=== PATIENT | male | born 1940 | race Caucasian/White ===

== ENCOUNTER 2023-01-23 13:49 | Emergency (ER) | payer MEDICARE, BC, SELFPAY ==
[2023-01-23] VITALS (14 sets, daily range): BP systolic 109–124; BP diastolic 54–59; PULSE 56–88; RESP 18–36; TEMP 36.6; O2SAT 95–100; BMI 21.8
[2023-01-23 14:28] LABS: Add Manual Diff / Slide Review NO; Basophils Absolute Auto 0 /uL (0-100); Basophils Percent Auto 0.7 % (0-2); Eosinophils Absolute Auto 0 /uL (0-450); Eosinophils Percent Auto 0.3 % (2-4); Hematocrit 27.1 % (41-53); Lymphocytes Absolute Auto 600 /uL (1100-4500); Lymphocytes Percent Auto 9.2 % (25-40); Mean Corpuscular HGB Conc 33.4 % (30-36); Mean Corpuscular Hemoglobin 30.3 PG (26-34); Mean Corpuscular Volume 90.8 fL (80-100); Monocytes Absolute Auto 400 /uL (0-900); Monocytes Percent Auto 5.6 % (3-14); Neutrophils Absolute Auto 5900 /uL (1500-7000); Neutrophils Percent Auto 84.2 % (50-75); Platelet Count 372 X10^3/uL (150-400); Red Blood Cell Count 2.98 X10^6/uL (4.5-5.9); Red Cell Distribution Width 18.6 % (11.6-14.8)
[2023-01-23 14:42] LABS: Alanine Aminotransferase 16 IU/L (<50); Albumin 3.9 g/dL (3.5-5.0); Alkaline Phosphatase 55 U/L (38-126); Aspartate Aminotransferase 30 IU/L (17-59); BUN Creatinine Ratio 54.3 (6-22); Bilirubin Total 0.5 mg/dL (0.2-1.3); Blood Urea Nitrogen 38 mg/dL (9-20); Calcium 9.5 mg/dL (8.4-10.2); Carbon Dioxide 33 mmol/L (22-32); Chloride 96 mmol/L (98-107); Estimated Glomerular Filt Rate > 60 mL/min (>60); Globulin 3.8 g/dL (1.7-4.1); Glucose 131 mg/dL (80-110); HEMOLYSIS < 15 (0-50); Lipase 122 U/L (23-300); Sodium 136 mmol/L (137-145); Total Protein 7.7 g/dL (6.3-8.2)
--- NOTE | 2023-01-23 19:36 | DI.CT.S_ITS ---
PROCEDURE: CT ABDOMEN PELVIS WO CON INDICATIONS: abd pain, fall, injury. TECHNIQUE: Noncontrast 5 mm thick sections acquired from the diaphragms to the symphysis. 5 mm coronal and sagittal reformats were then performed. For radiation dose reduction, the following was used: automated exposure control, adjustment of mA and/or kV according to patient size. COMPARISON: [facility], CT, CT HEAD/BRAIN WO CON, 01/23/2023, 19:58. FINDINGS: Image quality: Diminished by the absence of both oral and intravenous contrast. ABDOMEN: Lung bases: Lung bases are clear except for posterior atelectasis that is mild in severity, secondary to bilateral simple appearing pleural effusions, left slightly greater than right. Heart size is normal. Solid organs: Liver is normal in size. Gallbladder has been previously resected . Pancreas is normal in contours. Spleen is normal in size. No adrenal nodules. Kidneys are normal in size, without hydronephrosis or nephrolithiasis. Peritoneum and bowel: Unenhanced bowel loops demonstrate normal wall thickness and caliber. No free fluid or air. Moderate colonic obstipation. Nodes and vessels: No retroperitoneal or mesenteric adenopathy by size criteria. Aorta and inferior vena cava are normal in caliber. Miscellaneous: No ventral hernias. PELVIS: Genitourinary: Bladder wall thickness is normal. Miscellaneous: No inguinal hernias or adenopathy. Moderate colonic obstipation. Bones: No suspicious bony lesions. No vertebral body compression fractures. IMPRESSION: No trauma found. Moderate generalized colonic obstipation. Prior cholecystectomy. Bilateral left greater than right small pleural effusions. Secondary bibasilar atelectasis. Dictated by: Sagar Tee M.D. on 01/23/2023 at 20:29 Approved by: Sagar Tee M.D. on 01/23/2023 at 20:31
--- NOTE | 2023-01-23 19:42 | ED_ITS ---
HPI - Abdominal Pain General Chief Complaint: Abdominal Pain Stated Complaint: sent no bowel movement T-4 Time Seen by Provider: 01/23/23 19:13 Source: patient Mode of arrival: Ambulatory History of Present Illness HPI narrative: Patient brought here by family after evaluation by primary care provider for abdominal pain and no bowel movement for the past 4 days. Patient has history of colon resection cholecystectomy appendectomy. History of bowel obstructions in the past. Surgical history of these many years ago. Nausea but no vomiting. No urinary complaints. No black or bloody stools. No chest pain no back pain. Patient is in no distress. Related Data Previous Rx's Medication Instructions Recorded docusate sodium 100 mg capsule 100 mg PO BID #20 caps 01/24/23 (Colace) polyethylene glycol 3350 17 17 g PO DAILY #119 grams 01/24/23 gram/dose oral powder (Miralax) Allergies Allergy/AdvReac Type Severity Reaction Status Date / Time shrimp AdvReac Difficulty Verified 01/23/23 14:10 Breathing Review of Systems Review of Systems Narrative: GENERAL: negative chills, fatigue, malaise, fever, sweats. HEENT: negative sinus pain, ear pain, sore throat RESPIRATORY: negative dyspnea, cough CARDIOVASCULAR: negative chest pain, palpitations GASTROINTESTINAL: Positive nausea, negative vomiting, positive abdominal pain : negative dysuria, frequency, hematuria MUSCULOSKELETAL: negative muscle or bony pain SKIN: negative rash, skin lesions NEUROLOGIC: negative weakness, numbness ROS Unobtainable: All systems reviewed & are unremarkable except as noted in HPI and below Patient History Social History Smoking Status: Never smoker Smoking Status: Never smoker alcohol intake frequency: 0-2 drinks per day Substance Use Type: does not use Exam Narrative Exam Narrative: GENERAL: in no distress, not toxic not dyspneic HEAD: Normocephalic. Atraumatic, nontender scalp and skull. No ecchymosis or contusion or edema EYES: Pupils equal round ENT: Mucous membranes moist. NECK: Trachea midline. No midline tenderness or step-off of the cervical spine CARDIOVASCULAR: Regular rate and rhythm without murmurs RESPIRATORY: Clear to auscultation. Breath sounds equal bilaterally. No wheezes, rales, or rhonchi. GASTROINTESTINAL: Abdomen soft, abdomen is distended, tympanic on percussion. Bowel sounds are present. No pain out of portion to exam. Mild diffuse tenderness. EXTREMITIES: No gross deformities. BACK: No flank tenderness. NEURO: AOx4. SKIN: Warm and dry PSYCH: Not anxious, is cooperative Initial Vital Signs Initial Vital Signs: Vital Signs Temperature 97.8 F 01/23/23 14:01 Pulse Rate 69 01/23/23 14:01 Respiratory Rate 18 01/23/23 14:01 Blood Pressure 109/59 L 01/23/23 14:01 Pulse Oximetry 100 01/23/23 14:01 Oxygen Delivery Method Room Air 01/23/23 14:01 Course Orders Ordered: ED Orders 01/23/23 19:36 CT abdomen pelvis wo con Stat 01/23/23 19:43 CT head/brain wo con Stat Discontinued Medications Sodium Chloride (Normal Saline 0.9%) 1,000 mls @ 1,000 mls/hr IV BOLUS ONE Stop: 01/23/23 20:34 Last Infusion: 01/23/23 21:03 Dose: 0 mls/hr Documented By: Admin: 01/23/23 19:51 Dose: 1,000 mls/hr Documented By: MONTEZ Magnesium Citrate (Magnesium Citrate 300 Ml Solution) 300 ml PO NOW ONE Stop: 01/23/23 20:51 Last Admin: 01/23/23 21:03 Dose: 300 ml Documented By: MERLINE Morphine Sulfate (Morphine 2 Mg/Ml Inj) 2 mg IV NOW ONE Stop: 01/23/23 19:36 Last Admin: 01/23/23 19:52 Dose: 2 mg Documented By: MONTEZ Ondansetron HCl (Ondansetron 4 Mg/2 Ml Inj) 4 mg IV NOW PRN PRN Reason: Nausea And Vomiting Vital Signs Vital signs: Vital Signs - 8 hr 01/23/23 20:30 01/23/23 20:32 01/23/23 20:32 Pulse Rate 88 79 Respiratory Rate Blood Pressure 115/57 L Pulse Oximetry 95 01/23/23 21:00 01/23/23 21:00 01/24/23 00:23 Pulse Rate 72 84 Respiratory Rate 20 16 Blood Pressure 122/57 L 96/53 L Pulse Oximetry 100 98 01/24/23 00:42 Pulse Rate Respiratory Rate Blood Pressure 100/54 L Pulse Oximetry MDM - Abdominal Pain Lab Data 01/23/23 14:15 01/23/23 14:15 Labs: Lab Results 01/23/23 01/23/23 Range/Units 14:15 14:15 WBC 7.0 (4.5-11.0) X10^3/uL RBC 2.98 L (4.5-5.9) X10^6/uL Hgb 9.0 L (13.5-17.5) g/dL Hct 27.1 L (41-53) % MCV 90.8 (80-100) fL MCH 30.3 (26-34) PG MCHC 33.4 (30-36) % RDW 18.6 H (11.6-14.8) % Plt Count 372 (150-400) X10^3/uL Neut % (Auto) 84.2 H (50-75) % Lymph % (Auto) 9.2 L (25-40) % Lawrence % (Auto) 5.6 (3-14) % Eos % (Auto) 0.3 L (2-4) % Baso % (Auto) 0.7 (0-2) % Neut # (Auto) 5900 (6570-1484) /uL Lymph # (Auto) 600 L (4592-0100) /uL Lawrence # (Auto) 400 (0-900) /uL Eos # (Auto) 0 (0-450) /uL Baso # (Auto) 0 (0-100) /uL Sodium 136 L (137-145) mmol/L Potassium 4.0 (3.4-5.1) mmol/L Chloride 96 L (98-107) mmol/L Carbon Dioxide 33 H (22-32) mmol/L BUN 38 H (9-20) mg/dL Creatinine 0.70 (0.66-1.25) mg/dL Estimated GFR > 60 (>60) mL/min BUN/Creatinine Ratio 54.3 H (6-22) Glucose 131 H (80-110) mg/dL Calcium 9.5 (8.4-10.2) mg/dL Total Bilirubin 0.5 (0.2-1.3) mg/dL AST 30 (17-59) IU/L ALT 16 (<50) IU/L Alkaline Phosphatase 55 (38-126) U/L Total Protein 7.7 (6.3-8.2) g/dL Albumin 3.9 (3.5-5.0) g/dL Globulin 3.8 (1.7-4.1) g/dL Albumin/Globulin Ratio 1.0 (1.0-2.8) Lipase 122 (23-300) U/L Point of care testing: Urine Dip Bedside Urine Glucose Negative Bedside Urine Bilirubin - Negative Bedside Urine Ketone - Negative Urine Specific [place] 1.01 Bedside Urine Occult Blood - Negative Bedside Urine pH 6 Bedside Urine Protein - Negative Bedside Urine Urobilinogen - Negative Bedside Urine Nitrite - Negative Bedside Urine Leukocytes - Negative Esterase Imaging Data CT scan - head: Radiologist's Impression: [address] [address] [address] Scan Report Signed Patient: Juan Pablo Rebollar MR#: [id number] : 1940 Acct:[id number] Age/Sex: 82 / M Date of Service: 01/23/23 Loc: ED Accession Number: [id number] ?? Procedure: CT head/brain wo con Ordering Provider: Buck Mullen MD PROCEDURE:? CT HEAD/BRAIN WO CON ? INDICATIONS:? Fall/injury ? TECHNIQUE:? Noncontrast 4.5 mm thick angled axial sections acquired from the foramen magnum to the vertex, with coronal and sagittal reformats.? For radiation dose reduction, the following was used:? automated exposure control, adjustment of mA and/or kV according to patient size.? ? COMPARISON:? None. ? FINDINGS:? Image quality:? Excellent.? ? CSF spaces:? Basal cisterns are patent.? No extra-axial fluid collections.? The ventricles are symmetric in size and shape.? ? Brain:? No intracranial bleeds or masses.? There is cerebral volume loss for a ge, with resultant ventricular and sulcal prominence.? There are periventricular and deep white matter chronic small vessel ischemic changes.? There is intracranial internal carotid artery atherosclerosis.? ? Skull and face:? Calvarium and visualized facial bones appear intact, without suspicious lesions.? ? Sinuses:? Visualized sinuses and mastoids are clear.? ? IMPRESSION:? No trauma found.? Chronic microvascular atherosclerotic change in the deep white matter of each hemisphere, expected for advanced age. ? ? Dictated by: Sagar Tee M.D. on 01/23/2023 at 20:25 ? ? Approved by: Sagar Tee M.D. on 01/23/2023 at 20:26 ? CT scan - abdomen/pelvis: Radiologist's Impression: [address] [address] [address] Scan Report Signed Patient: Juan Pablo Rebollar MR#: [id number] : 1940 Acct:[id number] Age/Sex: 82 / M Date of Service: 01/23/23 Loc: ED Accession Number: [id number] ?? Procedure: CT abdomen pelvis wo con Ordering Provider: Buck Mullen MD PROCEDURE:? CT ABDOMEN PELVIS WO CON ? INDICATIONS:? abd pain, fall, injury. ? TECHNIQUE:? Noncontrast 5 mm thick sections acquired from the diaphragms to the symphysis.? 5 mm coronal and sagittal reformats were then performed.? For radiation dose reduction, the following was used:? automated exposure control, adjustment of mA and/or kV according to patient size.? ? COMPARISON:? [facility], CT, CT HEAD/BRAIN WO CON, 01/23/2023, 19:58. ? FINDINGS:? Image quality:? Diminished by the absence of both oral and intravenous contrast.? ? ABDOMEN:? Lung bases:? Lung bases are clear except for posterior atelectasis that is mild in severity, secondary to bilateral simple appearing pleural effusions, left slightly greater than right.? Heart size is normal.? ? Solid organs:? Liver is normal in size.? Gallbladder has been previously rese cted .? Pancreas is normal in contours.? Spleen is normal in size.? No adrenal nodules.? Kidneys are normal in size, without hydronephrosis or nephrolithiasis.? ? Peritoneum and bowel:? Unenhanced bowel loops demonstrate normal wall thickness and caliber.? No free fluid or air.? Moderate colonic obstipation. ? Nodes and vessels:? No retroperitoneal or mesenteric adenopathy by size criteria.? Aorta and inferior vena cava are normal in caliber.? ? Miscellaneous:? No ventral hernias.? ? ? PELVIS:? Genitourinary:? Bladder wall thickness is normal.? ? Miscellaneous:? No inguinal hernias or adenopathy.? Moderate colonic obstipation. ? Bones:? No suspicious bony lesions.? No vertebral body compression fractures.? ? IMPRESSION:? No trauma found.? Moderate generalized colonic obstipation.? Prior cholecystectomy.? Bilateral left greater than right small pleural effusions.? Secondary bibasilar atelectasis. ? ? Dictated by: Sagar Tee M.D. on 01/23/2023 at 20:29 ? ? Approved by: Sagar Tee M.D. on 01/23/2023 at 20:31 ? [facility] Narrative Medical decision making narrative: Patient brought here by family after evaluation by primary care provider for abdominal pain and no bowel movement for the past 4 days. Patient has history of colon resection cholecystectomy appendectomy. History of bowel obstructions in the past. Surgical history of these many years ago. Nausea but no vomiting. No urinary complaints. No black or bloody stools. No chest pain no back pain. Patient is in no distress. After history and exam CBC CMP lipase urinalysis EKG CT abdomen pelvis morphine Zofran normal saline [facility] CC: Abdominal pain Complicating co-morbidities: Significant past abdominal surgical history, history AFib Data collected from: Patient Medical records reviewed: No recent visits for this complaint Differential considered: Includes but not limited to bowel obstruction constipation perforated viscus UTI kidney stone, ischemic bowel Exam documented above, pertinent findings include: Distended abdomen/tenderness Lab Test results independently reviewed as above. Pertinent findings: WBC 7.0 hemoglobin 9.0 hematocrit 27.1 sodium 136 potassium 4.0 BUN 38 creatinine 0.7 GFR greater than 60 Independently reviewed EKG atrial fibrillation rate 68 right bundle-branch block no ST elevation or depression Imaging studies independently reviewed: CT head no acute finding CT abdomen pelvis moderate colonic obstipation Consultations: None indicated Treatments: Soapsuds enema/magnesium citrate Re-evaluations: 12:22 a.m.. Patient feels much better. Had very large formed stool. Abdomen feels much better. Son at bedside ready to take him home. Return precautions reviewed with him. Prescription for MiraLax and Colace provided. They desire discharge home Discussion: Appropriate for discharge home. Patient had significant improvement after very large bowel movement. Return precautions reviewed. They desire discharge home. Stool softener and MiraLax provided prescription. Not toxic at discharge Diagnosis: Constipation Discharge Plan Departure Patient Disposition: Home Clinical Impression: Constipation Instructions: DI for Constipation Activity Restrictions/Additional Instructions: Exam and CT imaging today as shown significant constipation. You were able to have significant relief with enema here. Please increase daily fiber fruits vegetables. Stool softener, Colace prescription has been provided for you. Be sure to continue this medication, pick it up tomorrow. See family doctor in a week for re-evaluation. Please do keep well hydrated daily. This helps prevent constipation. Return if worse if any questions or concerns Prescriptions: New docusate sodium [Colace] 100 mg capsule 100 mg PO BID Qty: 20 0RF polyethylene glycol 3350 [Miralax] 17 gram/dose powder 17 g PO DAILY Qty: 119 0RF Referrals: Linda Russo MD [Primary Care Provider] - Stand Alone Forms: Patient Portal/API
--- NOTE | 2023-01-23 19:43 | DI.CT.S_ITS ---
PROCEDURE: CT HEAD/BRAIN WO CON INDICATIONS: Fall/injury TECHNIQUE: Noncontrast 4.5 mm thick angled axial sections acquired from the foramen magnum to the vertex, with coronal and sagittal reformats. For radiation dose reduction, the following was used: automated exposure control, adjustment of mA and/or kV according to patient size. COMPARISON: None. FINDINGS: Image quality: Excellent. CSF spaces: Basal cisterns are patent. No extra-axial fluid collections. The ventricles are symmetric in size and shape. Brain: No intracranial bleeds or masses. There is cerebral volume loss for age, with resultant ventricular and sulcal prominence. There are periventricular and deep white matter chronic small vessel ischemic changes. There is intracranial internal carotid artery atherosclerosis. Skull and face: Calvarium and visualized facial bones appear intact, without suspicious lesions. Sinuses: Visualized sinuses and mastoids are clear. IMPRESSION: No trauma found. Chronic microvascular atherosclerotic change in the deep white matter of each hemisphere, expected for advanced age. Dictated by: Sagar Tee M.D. on 01/23/2023 at 20:25 Approved by: Sagar Tee M.D. on 01/23/2023 at 20:26
[2023-01-23] MEDS: SODIUM CHLORIDE 0.9% 1,000 ML 1000 ML IV (19:51)
[2023-01-23] MEDS: MORPHINE 2 MG/ML INJ IV (19:52)
[2023-01-23] MEDS: MAGNESIUM CITRATE 300 ML SOLUTION PO (21:03)
--- NOTE | 2023-01-24 00:08 | PC.NURSE ---
Pt given soap suds enema w/o problems.
[2023-01-24 00:23] VITALS: BP 96/53; PULSE 84; RESP 16; O2SAT 98
--- NOTE | 2023-01-24 00:26 | PC.NURSE ---
Pt had large formed stool.
[2023-01-24 00:42] VITALS: BP 100/54
== END 2023-01-24 00:45 | disposition home or self-care (01) ==
PROVIDERS: Emergency Medicine; Emergency Provider Emergency Medicine; Family Provider Internal Medicine; PCP Internal Medicine
DX: K59.00 Constipation, unspecified (principal); R10.9 Unspecified abdominal pain; W19.XXXA Unspecified fall, initial encounter; T14.90XA Injury, unspecified, initial encounter
CPT/HCPCS: 36415; 70450; 74176; 80053; 81003; 83690; 85025; 93005; 96361; 96374; 99284; 99285; J2270

== ENCOUNTER 2023-02-07 02:28 | Inpatient (IN) | payer MEDICARE, BC, SELFPAY ==
[2023-02-07] VITALS (9 sets, daily range): BP systolic 101–131; BP diastolic 49–58; PULSE 61–84; RESP 16–22; TEMP 36.2–37.2; O2SAT 95–100; BMI 22.4
--- NOTE | 2023-02-07 02:56 | DI.RAD.S_ITS ---
PROCEDURE: XR ACUTE ABDOMEN SERIES INDICATIONS: pain cramping hx obstruction TECHNIQUE: One view chest and two views of the abdomen were acquired. COMPARISON: [facility], CT, CT ABDOMEN PELVIS W CON, 02/07/2023, 4:55. FINDINGS: Surgical changes and devices: None. Chest: Small pleural effusions bilaterally. Bilateral lower lobe opacities may be infiltrate or atelectasis. Heart size is normal. No pneumoperitoneum. Abdomen: There are multiple air-fluid levels in mid abdomen. There is paucity of distal colonic gas. No suspicious calcifications. Visualized solid organ contours appear normal. Bones: No suspicious bony lesions. IMPRESSION: 1. Small-bowel obstruction. 2. Small pleural effusions bilaterally. 3. Bibasilar pneumonia or atelectasis. No significant discrepancy with the shiftman radiology preliminary report. Dictated by: Eulogio Parrish M.D. on 02/07/2023 at 8:37 Approved by: Eulogio Parrish M.D. on 02/07/2023 at 8:40
--- NOTE | 2023-02-07 04:33 | DI.CT.S_ITS ---
PROCEDURE: CT ABDOMEN PELVIS W CON INDICATIONS: SBO TECHNIQUE: After the administration of oral and IV contrast, axial sections were acquired from the lung bases to the pubic symphysis. Coronal and sagittal reformats were performed. For radiation dose reduction, the following was used: automated exposure control, adjustment of mA and/or kV according to patient size. COMPARISON: [facility], CT, CT ABDOMEN PELVIS WO [facility], 01/23/2023, 19:58. FINDINGS: Image quality: Excellent. Lung bases: [id number] pleural effusions bilaterally, left greater than right. Heart: Mild cardiomegaly. Moderate to severe coronary artery atherosclerosis. ABDOMEN: Liver: Unremarkable. Gallbladder: Surgically absent. Biliary ducts: Slightly prominent, likely secondary to postsurgical change. Pancreas: There is a 1.2 cm cyst in the area of the pancreatic head. Spleen: Unremarkable. Adrenal Glands: Unremarkable. Kidneys and Ureters: Unremarkable. Stomach and Bowel: Stomach is unremarkable. There is a large amount of stool in rectum. There is a focal narrowing in the distal sigmoid colon (series 2, image 66). Proximally, there is dilation of colon and distal small bowel measuring up to 7.7 cm, suggesting distal colonic obstruction. Postsurgical changes in right colon. Peritoneum: No abnormal intraperitoneal fluid. No free air. Ventral Wall: No hernia. Abdominal Nodes: No retroperitoneal or mesenteric adenopathy by size criteria. Vessels: Aorta and inferior vena cava are normal in size. Moderate atherosclerosis. PELVIS: Pelvic Organs: Unremarkable. Bladder: Unremarkable. Pelvic Nodes: No enlarged lymph nodes. Miscellaneous: No inguinal hernias are seen. Bones: Unremarkable. IMPRESSION: 1. There is distal colonic obstruction either from a focal narrowing or fecal impaction. A short segment focal narrowing is noted at the rectosigmoid junction, which could be caused by a mass or peristalsis. Recommend follow-up endoscopy. 2. [id number] bilateral pleural effusions. 3. A 1.2 cm cyst in the area of the pancreatic head. Differential diagnoses are a simple cyst versus IPMN. Consider pancreatic protocol MRI or CT for further evaluation. No significant discrepancy with the hourly shift manager radiology preliminary report. Dictated by: Eulogio Parrish M.D. on 02/07/2023 at 7:52 Approved by: Eulogio Parrish M.D. on 02/07/2023 at 8:04
--- NOTE | 2023-02-07 04:34 | ED.ABDPAIN ---
HPI - Abdominal Pain General Chief Complaint: Abdominal Pain Stated Complaint: constipated Time Seen by Provider: 02/07/23 04:33 Source: patient and family Mode of arrival: Wheelchair History of Present Illness HPI narrative: Patient is an 82-year-old male with history atrial fibrillation on xeralto, diabetes, multiple abdominal surgeries including colon resection cholecystectomy appendectomy with recent small-bowel obstructions in the past. Presents today with no bowel movement after taking GoLYTELY. He is actually prepping for colonoscopy supposed to have a [facility] he is had almost all of the GoLYTELY and he has not had any poop. He denies any nausea vomiting or abdominal pain. No chest pain. He was seen evaluated here January 23 for some abdominal discomfort. He had a CT and blood work at time no bowel movement for the last 4 days concern for obstruction but there was not. He was found to have constipation and actually discharged home with GoLYTELY from the ED. Related Data Previous Rx's Medication Instructions Recorded docusate sodium 100 mg capsule 100 mg PO BID #20 caps 01/24/23 (Colace) polyethylene glycol 3350 17 17 g PO DAILY #119 grams 01/24/23 gram/dose oral powder (Miralax) Allergies Allergy/AdvReac Type Severity Reaction Status Date / Time shrimp AdvReac Difficulty Verified 01/23/23 14:10 Breathing Review of Systems Review of Systems ROS Unobtainable: All systems reviewed & are unremarkable except as noted in HPI and below Patient History Social History Smoking Status: Former smoker Smoking Status: Former smoker alcohol intake frequency: 0-2 drinks per day Substance Use Type: does not use Exam Initial Vital Signs Initial Vital Signs: Vital Signs Temperature 98.1 F 02/07/23 02:32 Pulse Rate 75 02/07/23 02:32 Respiratory Rate 17 02/07/23 02:32 Blood Pressure 113/53 L 02/07/23 02:32 Pulse Oximetry 100 02/07/23 02:32 Oxygen Delivery Method Room Air 02/07/23 02:32 GENERAL: Alert pleasant thin 82-year-old male and in no acute distress. HEENT: Head atraumatic,EOMI, pupils reactive, face symmetric, moist mucous membranes CARDIOVASCULAR: Regular rate and rhythm without murmurs, rubs or gallops. RESPIRATORY: Breath sounds equal bilaterally, no wheezes rales or rhonchi. ABDOMEN: Soft, distention no pain ventral hernia noted EXTREMITIES: Normal range of motion, no clubbing or edema. Neurovascularly intact NEUROLOGICAL: Alert and oriented x4.Normal gait and speech. SKIN: Warm, dry, no laceration, no petechiae, no rashes or lesions. Course Orders Ordered: ED Orders 02/07/23 02:56 XR acute abdomen series Stat 02/07/23 04:33 CT abdomen pelvis w con Stat 02/07/23 04:42 Complete Blood Count AUTO DIFF Stat Comprehensive Metabolic Panel Stat Lipase Stat Dextrose/Sodium Chloride (Dextrose 5%-0.45% Ns) 1,000 mls @ 100 mls/hr IV CONT ANI Last Admin: 02/07/23 05:53 Dose: 100 mls/hr Documented By: RONAN Discontinued Medications Sodium Chloride (Normal Saline 0.9%) 1,000 mls @ 1,000 mls/hr IV BOLUS ONE Stop: 02/07/23 05:32 Last Infusion: 02/07/23 05:53 Dose: 0 mls/hr Documented By: Admin: 02/07/23 05:04 Dose: 1,000 mls/hr Documented By: RONAN Ondansetron HCl (Ondansetron 4 Mg/2 Ml Inj) 4 mg IV NOW ONE Stop: 02/07/23 04:34 Last Admin: 02/07/23 05:03 Dose: 4 mg Documented By: RONAN Vital Signs Vital signs: Vital Signs - 8 hr 02/07/23 02:32 02/07/23 05:07 02/07/23 05:30 Temperature 98.1 F Pulse Rate 75 72 83 Respiratory Rate 17 16 21 Blood Pressure 113/53 L Pulse Oximetry 100 97 Oxygen Delivery Method Room Air Room Air 02/07/23 05:32 02/07/23 05:32 02/07/23 06:00 Temperature Pulse Rate 79 Respiratory Rate 22 Blood Pressure 115/53 L 120/58 L Pulse Oximetry 99 Oxygen Delivery Method Room Air 02/07/23 06:00 Temperature Pulse Rate 84 Respiratory Rate 21 Blood Pressure Pulse Oximetry 99 Oxygen Delivery Method Room Air MDM - Abdominal Pain Lab Data 02/07/23 04:42 02/07/23 04:42 Labs: Lab Results 02/07/23 02/07/23 Range/Units 04:42 04:42 WBC 4.8 (4.5-11.0) X10^3/uL RBC 2.91 L (4.5-5.9) X10^6/uL Hgb 8.9 L (13.5-17.5) g/dL Hct 26.2 L (41-53) % MCV 90.0 (80-100) fL MCH 30.4 (26-34) PG MCHC 33.7 (30-36) % RDW 18.4 H (11.6-14.8) % Plt Count 305 (150-400) X10^3/uL Neut % (Auto) 83.0 H (50-75) % Lymph % (Auto) 8.7 L (25-40) % Daniels % (Auto) 7.6 (3-14) % Eos % (Auto) 0.3 L (2-4) % Baso % (Auto) 0.4 (0-2) % Neut # (Auto) 4000 (9632-1795) /uL Lymph # (Auto) 400 L (6441-2264) /uL Daniels # (Auto) 400 (0-900) /uL Eos # (Auto) 0 (0-450) /uL Baso # (Auto) 0 (0-100) /uL Sodium 129 L (137-145) mmol/L Potassium 3.3 L (3.4-5.1) mmol/L Chloride 86 L (98-107) mmol/L Carbon Dioxide 36 H (22-32) mmol/L BUN 23 H (9-20) mg/dL Creatinine 0.82 (0.66-1.25) mg/dL Estimated GFR > 60 (>60) mL/min BUN/Creatinine Ratio 28.0 H (6-22) Glucose 77 L (80-110) mg/dL Calcium 8.9 (8.4-10.2) mg/dL Total Bilirubin 1.0 (0.2-1.3) mg/dL AST 35 (17-59) IU/L ALT 15 (<50) IU/L Alkaline Phosphatase 56 (38-126) U/L Total Protein 7.8 (6.3-8.2) g/dL Albumin 3.8 (3.5-5.0) g/dL Globulin 4.0 (1.7-4.1) g/dL Albumin/Globulin Ratio 1.0 (1.0-2.8) Lipase 45 (23-300) U/L Point of care testing: Point of Care Testing Glucose POC 70 Imaging Data Abdominal x-ray: Radiologist's Impression: Moderate size bilateral pleural effusions and multifocal pulmonary infiltrates. Dilation of small bowel loops with scattered air-fluid levels concerning for small bowel obstruction. Recommend CT for abdomen for further evaluation CT scan - abdomen/pelvis: Radiologist's Impression: Large volume of stool within the sigmoid colon which is distended and measures a cm causing a mechanical obstruction with marked dilation of colon proximally with scattered air-fluid levels present. No pneumoperitoneum or pneumatosis present postsurgical findings of right hemicolectomy. Moderate size bilateral pleural effusions. Pancreatic cyst measuring 12 mm possibly an intraductal papillary mucinous neoplasm. Recommend contrast MRI. [facility] Narrative Medical decision making narrative: 82-year-old male presenting today after prepping for colonoscopy without having bowel movements. Found to have a mechanical sigmoid colon obstruction secondary to large volume of stool. Measures 8 cm. No nausea or vomiting. Abdomen is quite soft. Blood work is overall reassuring he was prepping for colonoscopy he is not taken his Xarelto. Glucose is slightly low he is put on dextrose half-normal. Dr. Nicholson updated on patient's symptoms test results recommends tap water enema admission to hospitalist and will have a therapeutic colonoscopy later. Hospitalist on-call , accepts patient Discharge Plan Departure Patient Disposition: Admitted as Observation Clinical Impression: Constipation, Bowel obstruction Admit Date/Time: 02/07/23 06:35 Admit Provider: Ar Perrin
[2023-02-07 04:56] LABS: Add Manual Diff / Slide Review NO; Basophils Absolute Auto 0 /uL (0-100); Basophils Percent Auto 0.4 % (0-2); Eosinophils Absolute Auto 0 /uL (0-450); Eosinophils Percent Auto 0.3 % (2-4); Hematocrit 26.2 % (41-53); Hemoglobin 8.9 g/dL (13.5-17.5); Lymphocytes Absolute Auto 400 /uL (1100-4500); Lymphocytes Percent Auto 8.7 % (25-40); Mean Corpuscular HGB Conc 33.7 % (30-36); Mean Corpuscular Hemoglobin 30.4 PG (26-34); Monocytes Absolute Auto 400 /uL (0-900); Monocytes Percent Auto 7.6 % (3-14); Neutrophils Absolute Auto 4000 /uL (1500-7000); Platelet Count 305 X10^3/uL (150-400); Red Blood Cell Count 2.91 X10^6/uL (4.5-5.9); Red Cell Distribution Width 18.4 % (11.6-14.8); White Blood Cell Count 4.8 X10^3/uL (4.5-11.0)
[2023-02-07 05:00] LABS: Alanine Aminotransferase 15 IU/L (<50); Albumin 3.8 g/dL (3.5-5.0); Alkaline Phosphatase 56 U/L (38-126); Aspartate Aminotransferase 35 IU/L (17-59); Blood Urea Nitrogen 23 mg/dL (9-20); Calcium 8.9 mg/dL (8.4-10.2); Carbon Dioxide 36 mmol/L (22-32); Chloride 86 mmol/L (98-107); Estimated Glomerular Filt Rate > 60 mL/min (>60); Glucose 77 mg/dL (80-110); HEMOLYSIS < 15 (0-50); Lipase 45 U/L (23-300); Potassium 3.3 mmol/L (3.4-5.1); Sodium 129 mmol/L (137-145); Total Protein 7.8 g/dL (6.3-8.2)
[2023-02-07] MEDS: ONDANSETRON 4 MG/2 ML INJ IV (05:03)
[2023-02-07] MEDS: SODIUM CHLORIDE 0.9% 1,000 ML 1000 ML IV (05:04)
--- NOTE | 2023-02-07 05:46 | PC.NURSE ---
Notified Dr. Sheikh of patient's blood sugar being 77. Verbal order to give pt juice. Patient had 100ml apple juice.
[2023-02-07] MEDS: DEXTROSE 5%-0.45% NS 1,000 ML 100 ML IV (05:53)
--- NOTE | 2023-02-07 13:33 | P.HP_ITS ---
History of Present Illness History of Present Illness Date Patient Seen: 02/07/23 Time Patient Seen: 09:00 Date of Onset of Symptoms: 02/06/23 Chief complaint: constipated Narrative: The patient is an 82 year old male who has a H/O previous abdomen surgery (colon resection, ramakrishna, appy) and sveral SBO's who was taking GoLytely to prep for a colonoscopy at [facility] today (positive fecal blood test) and developed inability to defecate as well as abdominal pain. He denies nausea or vomiting and presented to the ED. CT scan revealed distal colon stool and obstruction. He denies a BM over the 4 previous days. No recent fevers or chills. He also denies visible blood in the stool. He was discussed with surgeon isolation washer who recommended a tap water enema. This was performed with good results and improved symptoms. [facility] Medical History (Updated 02/07/23 @ 13:41 by Garrett Reed MD) Atrial fibrillation DM type 2 (diabetes mellitus, type 2) Social History Smoking Status: Former smoker Meds Home Medications and Allergies Home Medications Medication Instructions Recorded Confirmed Type docusate sodium 100 mg capsule 100 mg PO BID #20 caps 01/24/23 Rx (Colace) polyethylene glycol 3350 17 17 g PO DAILY #119 grams 01/24/23 Rx gram/dose oral powder (Miralax) Allergies Allergy/AdvReac Type Severity Reaction Status Date / Time shrimp AdvReac Difficulty Verified 01/23/23 14:10 Breathing Review of Systems Review of Systems Narrative: No BRBPR. No recent diarrhea. No chest pain or dyspnea. No recent fevers. All else reviewed and otherwise negative. Exam Vital Signs (past 8 hours): - 02/07/23 06:00 02/07/23 06:00 02/07/23 07:38 Temperature 98.9 F Pulse Rate 84 84 Respiratory Rate 21 18 Blood Pressure 120/58 L 101/49 L Pulse Oximetry 99 97 Oxygen Delivery Method Room Air Oxygen Delivery Method Room Air Narrative Exam Narrative: NAD, calm and with normal speech. Normal head Normal judgement No neck adenopathy Lungs are clear, normal effort Heart is regular. Abdomen is slightly distended, non-tender. Normal BT's. No masses or o rganomegaly. No leg edema No skin rash Normal joints Neuro, normal cranial nerves, normal motor strength of all extremities. Objective Imaging Chest x-ray: Radiologist's impression: 1. Small-bowel obstruction. 2. Small pleural effusions bilaterally. 3. Bibasilar pneumonia or atelectasis. CT scan - abdomen: Radiologist's impression: 1.? There is distal colonic obstruction either from a focal narrowing or fecal impaction. ?A short segment focal narrowing is noted at the rectosigmoid junction, which could be caused by a mass or peristalsis. Recommend follow-up endoscopy. ? 2. Gfxnc-dh-vlakdqhd bilateral pleural effusions. ? 3. A 1.2 cm cyst in the area of the pancreatic head.? Differential diagnoses are a simple cyst versus IPMN.? Consider pancreatic protocol MRI or CT for further evaluation.? Labs 02/07/23 04:42 02/07/23 04:42 Labs: Laboratory Results - last 24 hr 02/07/23 02/07/23 04:42 04:42 WBC 4.8 RBC 2.91 L Hgb 8.9 L Hct 26.2 L MCV 90.0 MCH 30.4 MCHC 33.7 RDW 18.4 H Plt Count 305 Neut % (Auto) 83.0 H Lymph % (Auto) 8.[address] [facility] [place] % (Auto) 7.6 Eos % (Auto) 0.3 L Baso % (Auto) 0.4 Neut # (Auto) 4000 Lymph # (Auto) [address] [facility] [place] # (Auto) 400 Eos # (Auto) 0 Baso # (Auto) 0 Sodium 129 L Potassium 3.3 L Chloride 86 L Carbon Dioxide 36 H BUN 23 H Creatinine 0.82 Estimated GFR > 60 BUN/Creatinine Ratio 28.0 H Glucose 77 L Calcium 8.9 Total Bilirubin 1.0 AST 35 ALT 15 Alkaline Phosphatase 56 Total Protein 7.8 Albumin 3.8 Globulin 4.0 Albumin/Globulin Ratio 1.0 Lipase 45 Assessment & Plan Assessment & Plan narrative: 1. SBO verses Obstipation, POAI. Discussed with surgeon, better after enema. Clear liquid diet and follow clinically. 2. Hyponatremia, POA. Saline at 100 ml/hr and follow. 3. Hypokalemia, POA. Replete and follow. 4. Pancreatic head cyst, POA. Follow up imaging OP. 5. DM 2 (no home meds). Glucose 77. Follow. 6. AF on Xarelto, POAS. Hold for now and resume if abdomen improves. Full code Dispo: home in 1-2 days. Time Spent With Patient Time with patient: 30 to 49 minutes with 50% spent counseling/coordinating care Quality MIPS - Admit I confirm the patient?s Advance Care Plan is present, Code status is documented, Surrogate decision maker is in patient?s record [If Yes, STOP here]: Yes
[2023-02-07] MEDS: POTASSIUM CHLORIDE 20 MEQ TAB 40 MEQ PO (14:10)
[2023-02-07] MEDS: SODIUM CHLORIDE 0.9% 1,000 ML 100 ML IV (14:11)
[2023-02-07] MEDS: PEG3350/SOD SULF,BICARB,CL/KCL 4,000 ML SOLUTION 4000 ML PO (17:27)
[2023-02-08 04:40] VITALS: BP 115/59; PULSE 64; RESP 18; TEMP 37.1; O2SAT 99
--- NOTE | 2023-02-08 08:14 | PM.PN.1 ---
Subjective Subjective Interval history: Did prep overnight. Doing well. No pain or dyspnea. Exam Vital Signs (past 8 hours): - 02/08/23 04:40 Temperature 98.7 F Pulse Rate 64 Respiratory Rate 18 Blood Pressure 115/59 L Pulse Oximetry 99 Oxygen Flow Rate 0 Oxygen Delivery Method Room Air Oxygen Flow Rate 0 Narrative Exam Narrative: NAD Normal speech Lungs clear Heart regular Abdomen soft, non-tender No leg edema Objective Labs 02/07/23 04:42 02/07/23 04:42 [facility] Medical History (Updated 02/07/23 @ 13:41 by Garrett Reed MD) Atrial fibrillation DM type 2 (diabetes mellitus, type 2) Social History Smoking Status: Former smoker Assessment & Plan Assessment & Plan narrative: 1. SBO verses Obstipation, present on admission and resolved with enemas. His colonoscopy at [facility] was missed in day of admission, will have colonoscopy here today. 2. Hyponatremia, POA. Saline at 100 ml/hr and follow. Labs pending. 3. Hypokalemia, POA. Replete and follow. 4. Pancreatic head cyst, POA. Follow up imaging OP. 5. DM 2 (no home meds). Glucose 77. Follow. 6. AF on Xarelto, POAS. Hold for now and resume if abdomen improves. Full code Dispo: home in 0-1 days. Time Spent With Patient Time with patient: less than 30 minutes
[2023-02-08 08:21] LABS: Add Manual Diff / Slide Review NO; Basophils Absolute Auto 0 /uL (0-100); Basophils Percent Auto 0.9 % (0-2); Eosinophils Absolute Auto 0 /uL (0-450); Eosinophils Percent Auto 1.1 % (2-4); Hematocrit 25.8 % (41-53); Hemoglobin 8.5 g/dL (13.5-17.5); Lymphocytes Absolute Auto 500 /uL (1100-4500); Lymphocytes Percent Auto 14.3 % (25-40); Mean Corpuscular HGB Conc 33.1 % (30-36); Mean Corpuscular Volume 90.6 fL (80-100); Monocytes Absolute Auto 300 /uL (0-900); Monocytes Percent Auto 9.1 % (3-14); Neutrophils Absolute Auto 2700 /uL (1500-7000); Neutrophils Percent Auto 74.6 % (50-75); Platelet Count 277 X10^3/uL (150-400); Red Blood Cell Count 2.85 X10^6/uL (4.5-5.9); Red Cell Distribution Width 17.9 % (11.6-14.8); White Blood Cell Count 3.6 X10^3/uL (4.5-11.0)
[2023-02-08 08:31] LABS: BUN Creatinine Ratio 17.5 (6-22); Blood Urea Nitrogen 10 mg/dL (9-20); Calcium 8.8 mg/dL (8.4-10.2); Carbon Dioxide 37 mmol/L (22-32); Chloride 99 mmol/L (98-107); Estimated Glomerular Filt Rate > 60 mL/min (>60); Glucose 72 mg/dL (80-110); HEMOLYSIS < 15 (0-50); Potassium 3.4 mmol/L (3.4-5.1); Sodium 138 mmol/L (137-145)
[2023-02-08] MEDS: BUDESONIDE 0.5 MG/2 ML NEB INH ×2 (08:51→22:00)
[2023-02-08] MEDS: ALBUTEROL 2.5 MG/3 ML NEB (ADULT) INH (08:51)
[2023-02-08] MEDS: POTASSIUM CHLORIDE 20 MEQ TAB PO (08:59)
[2023-02-08] MEDS: PEG3350/SOD SULF,BICARB,CL/KCL 4,000 ML SOLUTION 2000 ML PO (09:02)
[2023-02-08 09:16] VITALS: BP 110/49; PULSE 74; RESP 18; TEMP 36.6; O2SAT 97
--- NOTE | 2023-02-08 11:36 | CM.DANOTE ---
DCP: Case received, EMR reviewed and met with patient. Introduced self and role. Was able to obtain information regarding patient's baseline activity level at home prior to admission, as well as his current living situation. DCP assessment completed with information currently available. Patient is an 82 year old male who admitted yesterday morning to the care of the hospitalist team. PCP: Dr. Russo. Payer: confirmed: Medicare/[employer]. Patient came to the hospital via private vehicle secondary to complaints of having no BM after drinking GoLytely. Patient was preparing for a colonoscopy at [facility], and was preparing for this. Notes indicate that patient was here on January 23, for abdominal discomfort, and was noted to have constipation, and was discharged homw with Golytely, from the ED. Patient is currently diagnosed with distal colon stool and obstruction. Patient has had enema. He is scheduled for colonoscopy today. Met with patient in his room. He is alert, and sitting up in bed. Confirmed that he resides in [place], alone, has a sister, Duyen, also in [place], and is the main contact. Patient is independent at baseline, and drives. Stated, he's glad that they are doing the colonoscopy here instead of at [facility]. P: DCP to continue to follow. Plan is home when stable, could possibly be later today. Yessenia Carter RN/Product Transfer Pumper Discharge Planning/Care Management CM Discharge Assessment Start: 02/08/23 11:25 Freq: Status: Active Protocol: Document 02/08/23 11:25 (Rec: 02/08/23 11:36 [id number]) Discharge Planning Assessment Assigned Seismic Interpreter Yessenia Carter RN/Product Transfer Pumper Advance Directives? No History Provided By Patient,Medical Record Prior Living Arrangements House Household Members none Type of transporation used prior to Drives own vehicle admit Independent with ADL's Yes Is patient alert and oriented? Yes Caregiver for Another No Barriers to Discharge No Discharge Plan Home Transportation Arrangement Sister Referrals Initiated None needed Whiteboard Updated in Patient Room with Yes name and ext. # of Seismic Interpreter Review Status In Process
[2023-02-08 12:50] LABS: Add Manual Diff / Slide Review NO; Basophils Absolute Auto 0 /uL (0-100); Basophils Percent Auto 0.6 % (0-2); Eosinophils Absolute Auto 0 /uL (0-450); Eosinophils Percent Auto 0.5 % (2-4); Hemoglobin 8.9 g/dL (13.5-17.5); Lymphocytes Absolute Auto 400 /uL (1100-4500); Lymphocytes Percent Auto 11.2 % (25-40); Mean Corpuscular Hemoglobin 30.1 PG (26-34); Mean Corpuscular Volume 91.3 fL (80-100); Monocytes Absolute Auto 300 /uL (0-900); Monocytes Percent Auto 7.6 % (3-14); Neutrophils Absolute Auto 2700 /uL (1500-7000); Neutrophils Percent Auto 80.1 % (50-75); Platelet Count 316 X10^3/uL (150-400); Red Blood Cell Count 2.96 X10^6/uL (4.5-5.9); Red Cell Distribution Width 17.9 % (11.6-14.8); White Blood Cell Count 3.3 X10^3/uL (4.5-11.0)
[2023-02-08 13:04] LABS: Alanine Aminotransferase 16 IU/L (<50); Albumin 3.4 g/dL (3.5-5.0); Albumin Globulin Ratio 0.9 (1.0-2.8); Alkaline Phosphatase 51 U/L (38-126); Aspartate Aminotransferase 34 IU/L (17-59); BUN Creatinine Ratio 17.6 (6-22); Bilirubin Total 0.7 mg/dL (0.2-1.3); Blood Urea Nitrogen 9 mg/dL (9-20); Calcium 8.8 mg/dL (8.4-10.2); Carbon Dioxide 35 mmol/L (22-32); Chloride 98 mmol/L (98-107); Estimated Glomerular Filt Rate > 60 mL/min (>60); Globulin 3.7 g/dL (1.7-4.1); Glucose 80 mg/dL (80-110); HEMOLYSIS < 15 (0-50); Potassium 3.5 mmol/L (3.4-5.1); Sodium 138 mmol/L (137-145); Total Protein 7.1 g/dL (6.3-8.2)
[2023-02-08 15:17] VITALS: BP 115/49; PULSE 58; RESP 18; TEMP 36.5; O2SAT 100
[2023-02-08] MEDS: SODIUM CHLORIDE 0.9% 1,000 ML 100 ML IV (16:33)
[2023-02-08 20:00] VITALS: BP 135/67; PULSE 76; RESP 16; TEMP 37.5; O2SAT 100
[2023-02-08] MEDS: lisinopriL 5 MG TABLET PO (21:43)
[2023-02-08 22:18] VITALS: O2SAT 95
[2023-02-08] MEDS: DEXTROSE 5%-0.45% NS 1,000 ML 100 ML IV (23:20)
[2023-02-09] VITALS (10 sets, daily range): BP systolic 87–126; BP diastolic 41–61; PULSE 56–77; RESP 16–20; TEMP 36.2–37.1; O2SAT 93–100; BMI 22.4
--- NOTE | 2023-02-09 | PATH_ITS ---
[facility] Accession Number: [id number] No. of containers..01 Tissue . 01 Material submitted: . colon - TRANSVERSE POLYP . 01 Diagnosis: Transverse Colon Polyp: Tubular adenoma. MRV 02/18/2023 1417 Local . 01 Electronically signed: . Vikas Alvarado MD, PhD, Pathologist NPI- [id number] . 01 Gross description: . TRANSVERSE POLYP: Received in formalin are 2 fragment(s) of metcalf, soft tissue measuring 0.6 x 0.5 x 0.5 cm to 0.8 x 0.4 x 0.2 cm submitted entirely in 1 cassette(s) /EDMUNDO 02/14/2023 0014 Local . 01 Pathologist provided ICD-10: D12.3 . 01 CPT . 880821 Specimen Comment: A courtesy copy of this report has been sent to [phone] Performed at: 01 [facility] [address] [place] [address], [place], [place] [id number] MD Khang Correa MD Phone: [phone]
[2023-02-09 06:16] LABS: Add Manual Diff / Slide Review NO; Basophils Absolute Auto 0 /uL (0-100); Basophils Percent Auto 0.9 % (0-2); Eosinophils Absolute Auto 0 /uL (0-450); Eosinophils Percent Auto 1.5 % (2-4); Hematocrit 25.9 % (41-53); Hemoglobin 8.6 g/dL (13.5-17.5); Lymphocytes Absolute Auto 600 /uL (1100-4500); Lymphocytes Percent Auto 17.4 % (25-40); Mean Corpuscular HGB Conc 33.1 % (30-36); Mean Corpuscular Hemoglobin 29.9 PG (26-34); Mean Corpuscular Volume 90.2 fL (80-100); Monocytes Absolute Auto 300 /uL (0-900); Monocytes Percent Auto 9.7 % (3-14); Neutrophils Absolute Auto 2300 /uL (1500-7000); Neutrophils Percent Auto 70.5 % (50-75); Platelet Count 295 X10^3/uL (150-400); Red Blood Cell Count 2.87 X10^6/uL (4.5-5.9); Red Cell Distribution Width 18.4 % (11.6-14.8); White Blood Cell Count 3.2 X10^3/uL (4.5-11.0)
[2023-02-09 06:21] LABS: BUN Creatinine Ratio 10.6 (6-22); Blood Urea Nitrogen 5 mg/dL (9-20); Calcium 8.8 mg/dL (8.4-10.2); Carbon Dioxide 32 mmol/L (22-32); Chloride 101 mmol/L (98-107); Estimated Glomerular Filt Rate > 60 mL/min (>60); Glucose 84 mg/dL (80-110); HEMOLYSIS < 15 (0-50); Potassium 3.3 mmol/L (3.4-5.1); Sodium 135 mmol/L (137-145)
[2023-02-09] MEDS: LACTATED RINGERS 1,000 ML 42 ML IV (08:58)
--- NOTE | 2023-02-09 09:09 | PM.HP.1 ---
History of Present Illness History of Present Illness Date Patient Seen: 02/09/23 Time Patient Seen: 09:09 Chief complaint: constipated Narrative: Juan Pablo is an 82-year-old man who was scheduled for colonoscopy for a positive fit test at [facility] 2 days ago but his prep did not come out on time. He came in 2 days ago and an enema seemed to allow prep to complete. He is had a colonoscopy in the past but it has been quite some time. His hemoglobin is currently 8.6. [facility] Medical History (Updated 02/09/23 @ 09:11 by Marco Antonio Prado MD) Atrial fibrillation DM type 2 (diabetes mellitus, type 2) Social History household members: none Smoking Status: Former smoker Meds Home Medications and Allergies Home Medications Medication Instructions Recorded Confirmed Type albuterol sulfate 2.5 mg/0.5 mL 2.5 mg BID PRN Shortness Of Breath 02/07/23 02/07/23 History solution for nebulization Or Wheezing atorvastatin 20 mg tablet 20 mg PO DAILY 02/07/23 02/07/23 History budesonide-formoterol HFA 80 2 puff inhalation BID PRN 02/07/23 02/07/23 History mcg-4.5 mcg/actuation aerosol Shortness Of Breath Or Wheezing inhaler ezetimibe 10 mg tablet 10 mg PO DAILY 02/07/23 02/07/23 History fenofibric acid (choline) 135 mg 135 mg PO DAILY 02/07/23 02/07/23 History capsule,delayed release furosemide 40 mg tablet 40 mg PO QAM 02/07/23 02/07/23 History lisinopril 5 mg tablet 5 mg PO BID 02/07/23 02/07/23 History metoprolol succinate 25 mg PO DAILY 02/07/23 02/07/23 History omeprazole 20 mg capsule,delayed 20 mg PO DAILY 02/07/23 02/07/23 History release polyethylene glycol 3350 17 17 g PO DAILY PRN Constipation 02/07/23 02/07/23 History gram/dose oral powder (Miralax) potassium chloride 20 mEq 20 meq PO DAILY 02/07/23 02/07/23 History tablet,extended release(part/cryst) prazosin 1 mg capsule 1 mg PO ONCE PM 02/07/23 02/07/23 History Allergies Allergy/AdvReac Type Severity Reaction Status Date / Time shrimp AdvReac Difficulty Verified 01/23/23 14:10 Breathing Exam Vital Signs (past 8 hours): - 02/09/23 05:52 02/09/23 07:45 02/09/23 08:40 Temperature 98.7 F 97.9 F Pulse Rate 69 67 68 Respiratory Rate 16 20 19 Blood Pressure 111/61 108/46 L Pulse Oximetry 94 98 99 Oxygen Delivery Method Room Air Room Air Oxygen Flow Rate 0 Oxygen Delivery Method Room Air Oxygen Flow Rate 0 Const General: No acute distress Resp Effort & Inspection: normal respiratory effort Objective Labs 02/09/23 06:00 02/09/23 06:00 Labs: Laboratory Results - last 24 hr 02/08/23 02/08/23 02/09/23 12:40 12:40 06:00 WBC 3.3 L 3.2 L RBC 2.96 L 2.87 L Hgb 8.9 L 8.6 L Hct 27.0 L 25.9 L MCV 91.3 90.2 MCH 30.1 29.9 MCHC 33.0 33.1 RDW 17.9 H 18.4 H Plt Count 316 295 Neut % (Auto) 80.1 H 70.5 Lymph % (Auto) 11.2 L 17.4 L Norman % (Auto) 7.6 9.7 Eos % (Auto) 0.5 L 1.5 L Baso % (Auto) 0.6 0.9 Neut # (Auto) 2700 2300 Lymph # (Auto) 400 L 600 L Norman # (Auto) 300 300 Eos # (Auto) 0 0 Baso # (Auto) 0 0 Sodium 138 Potassium 3.5 Chloride 98 Carbon Dioxide 35 H BUN 9 Creatinine 0.51 L Estimated GFR > 60 BUN/Creatinine Ratio 17.6 Glucose 80 Calcium 8.8 Total Bilirubin 0.7 AST 34 ALT 16 Alkaline Phosphatase 51 Total Protein 7.1 Albumin 3.4 L Globulin 3.7 Albumin/Globulin Ratio 0.9 L 02/09/23 06:00 WBC RBC Hgb Hct MCV MCH MCHC RDW Plt Count Neut % (Auto) Lymph % (Auto) Norman % (Auto) Eos % (Auto) Baso % (Auto) Neut # (Auto) Lymph # (Auto) Norman # (Auto) Eos # (Auto) Baso # (Auto) Sodium 135 L Potassium 3.3 L Chloride 101 Carbon Dioxide 32 BUN 5 L Creatinine 0.47 L Estimated GFR > 60 BUN/Creatinine Ratio 10.6 Glucose 84 Calcium 8.8 Total Bilirubin AST ALT Alkaline Phosphatase Total Protein Albumin Globulin Albumin/Globulin Ratio Assessment & Plan Assessment and plan (1) Positive FIT (fecal immunochemical test): Status: Acute Plan We reviewed the risks and benefits of a colonoscopy for a positive fit test and he would like to proceed.
--- NOTE | 2023-02-09 09:36 | PM.OP.COLON ---
Operative Date/Time/Diagnoses Date of procedure: 02/09/23 Time of procedure: 09:37 Pre-op diagnosis: Positive fit test Post-op diagnosis: same Procedure & Clinicians Study performed: Colonoscopy Same procedure as scheduled: Yes Surgeon: Marco Antonio Prado Procedure Notes Procedure in detail: Surgeon: Marco Antonio Prado MD Anesthesia: Pily Robert CRNA Procedure: The patient was brought to the endoscopy suite, placed in left lateral decubitus position. The patient was connected to monitoring devices. A time-out was performed. Sedation was administered. Once the patient was adequately sedated, a digital rectal exam was performed and was normal. The scope was then inserted and advanced to the ileocolic anastomosis. The terminal ileum was intubated. Photographs were taken. There was a 5 mm polyp in the transverse colon near the anastomosis. The polyp was removed with a cold snare. The scope was then slowly withdrawn over greater than 6 minutes. The mucosa was thoroughly inspected. No other abnormalities were noted. The scope was retroflexed in the rectum. No abnormalities were noted. The scope was straightened and removed. The patient was awakened and brought to recovery. Scope withdrawal time: 9 minutes Sedation time: 28 minute EBL: 5 mL Findings: Small polyp in the transverse colon just past the anastomosis. Post-procedure Disposition: PACU
--- NOTE | 2023-02-09 10:17 | CM.DPNOTE ---
Discharge Planning Note: Patient returned from colonoscopy this morning, being settled into bed. Spoke with son Dorian myers who stated that patient has a home in [place] but that he has been living with son for the past few months. Plan: Discharge to care of son with previous arrangement when medically cleared. Cady Dozier RN/DCP
--- NOTE | 2023-02-09 10:51 | PC.NURSE ---
1020: returned from colonoscopy: per report 1 polyp was found. patient reports hunger, requested chicken soup and a fruit smoothie. patient denies pain/discomfort except for the hunger. awaiting arrival of food from dietary. bed alarm is on, call light w/in reach.
[2023-02-09] MEDS: FENOFIBRATE, MICRONIZED 67 MG CAPSULE 134 MG PO (11:03)
[2023-02-09] MEDS: POTASSIUM CHLORIDE 20 MEQ TAB 40 MEQ PO (11:03)
[2023-02-09] MEDS: EZETIMIBE 10 MG TABLET PO (11:04)
[2023-02-09] MEDS: PANTOPRAZOLE DR 20 MG TABLET PO (11:05)
[2023-02-09] MEDS: ATORVASTATIN 20 MG TABLET PO (11:05)
--- NOTE | 2023-02-09 13:33 | P.DS_ITS ---
History of Present Illness History of Present Illness Date Patient Seen: 02/09/23 Chief complaint: constipated Narrative: Patient feeling fine. He had his colonoscopy and he understands there was a polyp that was removed. His constipation has cleared in his eager to go home. Discharge Providers Provider Date of admission: 02/07/23 06:35 Discharge Date: 02/09/23 Primary care physician: Linda Russo MD Consults: Dr. Prado general surgeon for colonoscopy procedure. Discharge provider: Anabelle Shirley MD Summary Hospital Course Discharge Diagnosis: Positive fit test Constipation Nausea Colonic polyp Atrial fibrillation Type 2 diabetes -however fasting blood sugars good Small-bowel obstruction Small to moderate bilateral pleural effusion Past medical history/comorbidities: Previous abdomen surgery (colon resection, ramakrishna, appy) Several SBO's COPD Hyperlipidemia Hypertension Hospital Course: Juan Pablo Mcmahon is an 82 year old male who has a H/O previous abdomen surgery (colon resection, ramakrishna, appy) and several SBO's who was taking GoLytely to prep for a colonoscopy at [facility] today (due to positive fecal blood Fit test) and developed inability to defecate as well as abdominal pain. He had nausea but no vomiting and presented to the ED. CT scan revealed distal colon stool and obstruction. He denied a BM over the 4 previous days. No recent fevers or chills. He also denied visible blood in the stool. He was discussed with surgeon rn practitioner who recommended a tap water enema. This was performed with good results and improved symptoms. For full evaluation after the patient had appropriate bowel prep, the patient was taken to have a colonoscopy. Procedure revealed a colonic polyp that was removed. Otherwise no concerns. Start his anticoagulation on the day after procedure. At the time of discharge the patient's family members were present and an appropriate diet to help with constipation was discussed. There was recommendations for fresh fruits such as watermelon and strawberries that can help with constipation as well as popcorn and celery which are also high fiber. It was discussed which foods tend to be constipated as well. He was encouraged to use MiraLax at noon daily and hold this if having loose stool in the morning. Status at Discharge Cognitive/behavioral status at discharge: at baseline, oriented Functional status at discharge: independent ambulation Overall status at discharge: patient is back to baseline Time Spent with Patient Time spent: Greater than 30 minutes Exam Vital Signs (past 8 hours): - 02/09/23 05:52 02/09/23 07:45 02/09/23 08:40 Temperature 98.7 F 97.9 F Pulse Rate 69 67 68 Respiratory Rate 16 20 19 Blood Pressure 111/61 108/46 L Pulse Oximetry 94 98 99 Oxygen Delivery Method Room Air Room Air Oxygen Flow Rate 0 02/09/23 09:39 02/09/23 09:39 02/09/23 09:49 Temperature 97.1 F L Pulse Rate 75 77 68 Respiratory Rate 17 20 19 Blood Pressure 87/41 L 89/42 L 99/44 L Pulse Oximetry 93 96 97 Oxygen Delivery Method Room Air Room Air Room Air Oxygen Flow Rate 02/09/23 09:54 02/09/23 10:00 02/09/23 10:30 Temperature 97.1 F L Pulse Rate 72 66 61 Respiratory Rate 18 17 17 Blood Pressure 103/52 L 103/53 L 103/53 L Pulse Oximetry 97 99 99 Oxygen Delivery Method Room Air Oxygen Flow Rate 0 0 02/09/23 11:00 Temperature Pulse Rate 56 L Respiratory Rate 17 Blood Pressure 112/50 L Pulse Oximetry 100 Oxygen Delivery Method Oxygen Flow Rate 0 Oxygen Delivery Method Room Air Oxygen Flow Rate 0 Narrative Exam Narrative: NAD Normal speech Lungs clear Heart regular Abdomen soft, non-tender No leg edema Objective Labs 02/09/23 06:00 02/09/23 06:00 Labs: Laboratory Results - last 24 hr 02/09/23 02/09/23 06:00 06:00 WBC 3.2 L RBC 2.87 L Hgb 8.6 L Hct 25.9 L MCV 90.2 MCH 29.9 MCHC 33.1 RDW 18.4 H Plt Count 295 Neut % (Auto) 70.5 Lymph % (Auto) 17.4 L [place] % (Auto) 9.7 Eos % (Auto) 1.5 L Baso % (Auto) 0.9 Neut # (Auto) 2300 Lymph # (Auto) 600 L [place] # (Auto) 300 Eos # (Auto) 0 Baso # (Auto) 0 Sodium 135 L Potassium 3.3 L Chloride 101 Carbon Dioxide 32 BUN 5 L Creatinine 0.47 L Estimated GFR > 60 BUN/Creatinine Ratio 10.6 Glucose 84 Calcium 8.8 PENDING SALE TO [facility] Medical History Atrial fibrillation DM type 2 (diabetes mellitus, type 2) Social History household members: none Smoking Status: Former smoker Discharge Plan Discharge Plan Patient Disposition: Home Provider Discharge Comment: Ok to restart anticoagulation on 02/10 if deemed medically necessary. Restart the Xarelto on 02/10. Nursing Discharge Comment: take medications as directed. monitor for returning symptoms.. keep track of bowel movements and monitor for signs and symptoms of constipation. take the miralax as ordered, hold if having loose stools. please check blood pressure and pulse prior to taking cardiac medications. ask PCP for parameters for the medications and when to hold them. a common parameter is Hold for b/p of <100/50 or pulse <60. your blood pressure was low and medications were withheld during the hospital stay. it is good practice to keep a log x 2 weeks of vital signs x 2 weeks.... (blood pressure and pulse) take this list to your follow up appointment, and MD can make adjustments as necessary. no wheat in diet per patient / family request. please see your primary care physician w/in 7-10 days of today's date. it was a pleasure to be your nurse today, enjoy the rest of your afternoon! Discharge orders & Medications Prescriptions: New Xarelto 15 mg tablet 15 mg PO DAILY Qty: 30 0RF Rx Instructions: must administer with evening meal Continued furosemide 40 mg tablet 40 mg PO QAM atorvastatin 20 mg tablet 20 mg PO DAILY prazosin 1 mg capsule 1 mg PO ONCE PM potassium chloride 20 mEq tablet,ER particles/crystals 20 meq PO DAILY omeprazole 20 mg capsule,delayed release(DR/EC) 20 mg PO DAILY lisinopril 5 mg tablet 5 mg PO BID ezetimibe 10 mg tablet 10 mg PO DAILY albuterol sulfate 2.5 mg/0.5 mL Solution For Nebulization 2.5 mg BID PRN (Reason: Shortness Of Breath Or Wheezing) budesonide-formoterol 80-4.5 mcg/actuation HFA aerosol inhaler 2 puff INHALATION BID PRN (Reason: Shortness Of Breath Or Wheezing) fenofibric acid (choline) 135 mg capsule,delayed release(DR/EC) 135 mg PO DAILY metoprolol succinate 25 mg tablet 25 mg PO DAILY polyethylene glycol 3350 [Miralax] 17 gram/dose powder 17 g PO DAILY PRN (Reason: Constipation) Follow up/Referrals: Linda Russo MD [Primary Care Provider] - Visit Report/Discharge Packet Instructions: High-Fiber Diet, DI for Heart Failure, DI for Colon Polypectomy, DI for Hemorrhoid Banding, DI for Hemorrhoids, DI for Prescription Opioid Use, DI for Diverticulosis Stand Alone Forms: Patient Portal/API, Stroke Signs & Symptoms Discharge Data Primary Care Provider: Linda Russo
--- NOTE | 2023-02-09 13:46 | PC.NURSE ---
off floor for procedure. NPO since midnight. 1100: returned to floor s/p colonoscopy, 1 polyp found per report from marya. patient reportedly hungry when back to room. family requested no wheat for his diet. d/c orders received. see d/c
[2023-02-09] MEDS: BUDESONIDE 0.5 MG/2 ML NEB INH (16:39)
== END 2023-02-09 11:30 | disposition home or self-care (01) | DRG 389 ==
LOC: ED 02:39 → AC 07:12
PROVIDERS: Hospitalist; Surgery; Admitting Provider Internal Medicine; Emergency Provider Emergency Medicine; Family Provider Internal Medicine; PCP Internal Medicine; Referring Provider Emergency Medicine; Visit Provider Internal Medicine
PROC: 0DJD8ZZ Inspection of Lower Intestinal Tract, Via Natural or Artificial Opening Endoscopic (ICD-10-PCS; CPT 45378; principal; 2023-02-09 09:00)
DX: K56.609 Unspecified intestinal obstruction, unspecified as to partial versus complete obstruction (principal); E87.1 Hypo-osmolality and hyponatremia; J90 Pleural effusion, not elsewhere classified; E87.6 Hypokalemia; E11.9 Type 2 diabetes mellitus without complications; I48.91 Unspecified atrial fibrillation; R19.5 Other fecal abnormalities; K59.00 Constipation, unspecified; D12.3 Benign neoplasm of transverse colon; E78.5 Hyperlipidemia, unspecified; I10 Essential (primary) hypertension; J44.9 Chronic obstructive pulmonary disease, unspecified; Z79.01 Long term (current) use of anticoagulants; Z87.891 Personal history of nicotine dependence
CPT/HCPCS: 36415; 74022; 74177; 80048; 80053; 82962; 83690; 85025; 94640; 96374; 99285; J2405; J2704; J7613; Q9967

== ENCOUNTER 2023-02-28 09:24 | Emergency (ER) | payer MEDICARE, BC, SELFPAY ==
[2023-02-07 07:42] VITALS: BMI 22.4
[2023-02-28] VITALS (8 sets, daily range): BP systolic 106–125; BP diastolic 54–84; PULSE 68–82; RESP 22–35; TEMP 37.1; O2SAT 94–98; BMI 21.7
--- NOTE | 2023-02-28 09:48 | DI.CT.S_ITS ---
PROCEDURE: CT CERVICAL SPINE WO CON INDICATIONS: fall, abd pain TECHNIQUE: Noncontrast 3 mm thick sections acquired from the skull base to the T4 level. Sagittal and coronal reformats were then constructed. For radiation dose reduction, the following was used: automated exposure control, adjustment of mA and/or kV according to patient size. COMPARISON: None. FINDINGS: Image quality: Excellent. Bones: No cervical spine fractures or dislocations. Visualized superior ribs are intact. Degenerative changes of the cervical spine with disc height loss, facet and uncovertebral arthropathy and osteophytosis. Compression deformity of the superior endplate of T3. Decreased osseous mineralization. Soft tissues: Prevertebral soft tissues are normal in thickness. No paravertebral hematomas. No apical pneumothoraces. Small to moderate bilateral pleural effusions. Paraseptal and centrilobular emphysematous changes. IMPRESSION: 1. Limited exam secondary to patient positioning. No acute fracture or traumatic listhesis of the cervical spine. 2. Compression deformity of the superior endplate of T3 with approximately 25 percent height loss. No retropulsion. Recommend correlation with point tenderness. Dictated by: Jameson Oakley M.D. on 02/28/2023 at 10:59 Approved by: Jameson Oakley M.D. on 02/28/2023 at 11:08
--- NOTE | 2023-02-28 09:48 | DI.CT.S_ITS ---
PROCEDURE: CT HEAD/BRAIN WO CON INDICATIONS: fall, hit head TECHNIQUE: Noncontrast 4.5 mm thick angled axial sections acquired from the foramen magnum to the vertex, with coronal and sagittal reformats. For radiation dose reduction, the following was used: automated exposure control, adjustment of mA and/or kV according to patient size. COMPARISON: [facility], CT, CT HEAD/BRAIN WO CON, 01/23/2023, 19:58. FINDINGS: Image quality: Excellent. CSF spaces: Basal cisterns are patent. No extra-axial fluid collections. The ventricles are symmetric in size and shape. Brain: No intracranial bleeds or masses. There is cerebral volume loss for age, with resultant ventricular and sulcal prominence. There are periventricular and deep white matter chronic small vessel ischemic changes. Encephalomalacia and gliosis within the left temporal lobe is stable. There is intracranial internal carotid artery atherosclerosis. Skull and face: Calvarium and visualized facial bones appear intact, without suspicious lesions. Sinuses: Visualized sinuses and mastoids are clear. IMPRESSION: No acute intracranial abnormalities. Redemonstration of chronic microvascular ischemic change and global volume loss, expected for age. Dictated by: Jameson Oakley M.D. on 02/28/2023 at 10:57 Approved by: Jameson Oakley M.D. on 02/28/2023 at 10:59
--- NOTE | 2023-02-28 09:48 | DI.RAD.S_ITS ---
PROCEDURE: XR CHEST 1V INDICATIONS: fall, abd pain TECHNIQUE: One view of the chest was acquired. COMPARISON: [facility], CT, CT ABDOMEN PELVIS W CON, 02/28/2023, 10:32. FINDINGS: Surgical changes and devices: None. Lungs and pleura: Small to moderate bilateral pleural effusions. Bibasilar hazy opacities, atelectasis versus consolidation. Mediastinum: Mediastinal contours appear normal. Heart size is normal. Bones and chest wall: No suspicious bony lesions. Overlying soft tissues appear unremarkable. IMPRESSION: Small to moderate bilateral pleural effusions with adjacent atelectasis versus consolidation. Dictated by: Jameson Oakley M.D. on 02/28/2023 at 10:54 Approved by: Jameson Oakley M.D. on 02/28/2023 at 10:55
--- NOTE | 2023-02-28 09:48 | DI.CT.S_ITS ---
PROCEDURE: CT ABDOMEN PELVIS W CON INDICATIONS: abd pain, weakness, fall, hit head on Xarelto TECHNIQUE: After the administration of intravenous contrast, axial sections acquired from the lung bases to the pubic symphysis. Coronal and sagittal reformats were performed. For radiation dose reduction, the following was used: automated exposure control, adjustment of mA and/or kV according to patient size. COMPARISON: [facility], CT, CT ABDOMEN PELVIS W CON, 02/07/2023, 4:55. FINDINGS: Image quality: Excellent. Lung bases: Small, loculated pleural effusions. Small hiatal hernia. Heart: Cardiomegaly. ABDOMEN: Liver: Unremarkable. Gallbladder: Cholecystectomy. Biliary ducts: Unremarkable. Pancreas: Atrophic. Subcentimeter cystic lesion within the neck, presumably a side branch IPMN. Spleen: Unremarkable. Adrenal Glands: Unremarkable. Kidneys and Ureters: Unremarkable. Stomach and Bowel: Large colonic and rectal stool load without evidence of colitis. 2.5 centimeter segment sigmoid wall thickening, which is nondistended with stool (series 3, image 64). Peritoneum: No abnormal intraperitoneal fluid. No free air. Ventral Wall: No hernias. Abdominal Nodes: No retroperitoneal or mesenteric adenopathy by size criteria. Vessels: Aorta and inferior vena cava are normal in size. PELVIS: Pelvic Organs: Unremarkable. Bladder: Unremarkable. Pelvic Nodes: No enlarged lymph nodes. Miscellaneous: No hernias are seen. Bones: Unremarkable. IMPRESSION: No traumatic injury Large colonic and rectal stool load without evidence colitis. 2.5 centimeter segment of sigmoid wall thickening. Differential includes malignancy or artifact from underdistention. Consider further evaluation with colonoscopy. Small, loculated pleural effusions and cardiomegaly. Dictated by: Magdaleno Burt M.D. on 02/28/2023 at 11:00 Approved by: Magdaleno Burt M.D. on 02/28/2023 at 11:04
[2023-02-28 10:01] LABS: Add Manual Diff / Slide Review NO; Basophils Absolute Auto 0 /uL (0-100); Basophils Percent Auto 0.6 % (0-2); Eosinophils Absolute Auto 0 /uL (0-450); Hemoglobin 9.3 g/dL (13.5-17.5); Lymphocytes Absolute Auto 600 /uL (1100-4500); Lymphocytes Percent Auto 26.3 % (25-40); Mean Corpuscular HGB Conc 33.1 % (30-36); Mean Corpuscular Hemoglobin 28.6 PG (26-34); Mean Corpuscular Volume 86.5 fL (80-100); Monocytes Absolute Auto 400 /uL (0-900); Monocytes Percent Auto 18.3 % (3-14); Neutrophils Absolute Auto 1300 /uL (1500-7000); Neutrophils Percent Auto 54.8 % (50-75); Platelet Count 249 X10^3/uL (150-400); Red Blood Cell Count 3.24 X10^6/uL (4.5-5.9); Red Cell Distribution Width 17.2 % (11.6-14.8); White Blood Cell Count 2.3 X10^3/uL (4.5-11.0)
[2023-02-28 10:05] LABS: INR 1.2 (0.9-1.3)
[2023-02-28 10:06] LABS: Appearance Urine UA SL CLOUDY; Bilirubin Urine UA NEGATIVE (NEGATIVE); Color Urine UA YELLOW; Glucose Urine UA NEGATIVE (Negative); Ketones Urine UA NEGATIVE (NEGATIVE); Leukocyte Esterase Urine UA NEGATIVE (NEGATIVE); Nitrite Urine UA NEGATIVE (Negative); Occult Blood Urine UA NEGATIVE (Negative); Protein Urine UA NEGATIVE (Negative); pH Urine UA 6.5 (4.5-8.0)
[2023-02-28 10:07] LABS: PTT Partial Thromboplastin Tim 34 SECONDS (26-36)
[2023-02-28 10:10] LABS: Bacteria Urine None Seen; Culture Indicated Urine Cult Not Indicated; RBC Urine None Seen (0-5/HPF); Squamous Epithelial Cell Urine None Seen (0-5/HPF); Urine Comments Microscopic Normal; WBC Urine None Seen (0-5/HPF)
[2023-02-28 10:16] LABS: Alanine Aminotransferase 19 IU/L (<50); Albumin 3.5 g/dL (3.5-5.0); Albumin Globulin Ratio 0.9 (1.0-2.8); Alkaline Phosphatase 52 U/L (38-126); Aspartate Aminotransferase 49 IU/L (17-59); BUN Creatinine Ratio 26.8 (6-22); Bilirubin Total 0.7 mg/dL (0.2-1.3); Blood Urea Nitrogen 19 mg/dL (9-20); Calcium 8.7 mg/dL (8.4-10.2); Carbon Dioxide 34 mmol/L (22-32); Chloride 96 mmol/L (98-107); Creatine Kinase 182 U/L (55-170); Estimated Glomerular Filt Rate > 60 mL/min (>60); Globulin 3.9 g/dL (1.7-4.1); Glucose 89 mg/dL (80-110); HEMOLYSIS < 15 (0-50); Lipase 85 U/L (23-300); Potassium 3.5 mmol/L (3.4-5.1); Sodium 135 mmol/L (137-145); Total Protein 7.4 g/dL (6.3-8.2)
[2023-02-28 10:28] LABS: NT-proBNP (BNP-Adult 18+) 1080 pg/mL (<450); Troponin I 0.038 ng/mL (0.01-0.034)
[2023-02-28 10:33] LABS: Procalcitonin 0.08 ng/mL (<0.5)
--- NOTE | 2023-02-28 11:02 | ED_ITS ---
HPI - Abdominal Pain General Chief Complaint: Abdominal Pain Stated Complaint: pain in L/ABD Time Seen by Provider: 02/28/23 09:48 Source: patient and family Mode of arrival: Wheelchair History of Present Illness HPI narrative: 82-year-old male with history of atrial fibrillation on Xarelto, diabetes, prior abdominal surgeries for colon resection, cholecystectomy and appendectomy with prior small-bowel obstructions. Patient had hospitalization a month ago for bowel obstruction versus constipation was found to just be constipated but there is thickening on CT so had colonoscopy which found polyp which was removed approximately a month ago. Patient states since then he has been stooling pretty regularly but 3 days ago started getting more constipated. He states he can feel there is a lot of stool does not really feel it is at the rectal vault but he just will come out. He is taking several stool softeners [id number] he does not recall all of the names. Some of them were left over from an old rib 8. He is had abdominal cramping and discomfort. He states he is not passing flatus. No fevers or chills. No nausea or vomiting. He does not describe increasing abdominal distention. Denies chest pain or shortness of breath. He notes that he was fishing the other day on a slope, lost his balance and fell into the slope striking his face. He denies loss of consciousness, headache or neck or back pain. He does have an abrasion over his nose. Patient states he is on some daily narcotics but likely slow down his got as well. He lives in his own home but his sister lives next door and [facility] to get [facility]. He has not tried any enemas or medications rectally. Related Data Home Medications Medication Instructions Recorded Confirmed albuterol sulfate 2.5 mg/0.5 mL 2.5 mg BID PRN Shortness Of Breath 02/07/23 02/07/23 solution for nebulization Or Wheezing atorvastatin 20 mg tablet 20 mg PO DAILY 02/07/23 02/07/23 budesonide-formoterol HFA 80 2 puff inhalation BID PRN 02/07/23 02/07/23 mcg-4.5 mcg/actuation aerosol Shortness Of Breath Or Wheezing inhaler ezetimibe 10 mg tablet 10 mg PO DAILY 02/07/23 02/07/23 fenofibric acid (choline) 135 mg 135 mg PO DAILY 02/07/23 02/07/23 capsule,delayed release furosemide 40 mg tablet 40 mg PO QAM 02/07/23 02/07/23 lisinopril 5 mg tablet 5 mg PO BID 02/07/23 02/07/23 metoprolol succinate 25 mg PO DAILY 02/07/23 02/07/23 omeprazole 20 mg capsule,delayed 20 mg PO DAILY 02/07/23 02/07/23 release polyethylene glycol 3350 17 17 g PO DAILY PRN Constipation 02/07/23 02/07/23 gram/dose oral powder (Miralax) potassium chloride 20 mEq 20 meq PO DAILY 02/07/23 02/07/23 tablet,extended release(part/cryst) prazosin 1 mg capsule 1 mg PO ONCE PM 02/07/23 02/07/23 Previous Rx's Medication Instructions Recorded rivaroxaban 15 mg tablet (Xarelto) 15 mg PO DAILY #30 tabs 02/09/23 Allergies Allergy/AdvReac Type Severity Reaction Status Date / Time shrimp AdvReac Difficulty Verified 02/28/23 09:59 Breathing Review of Systems Review of Systems ROS Unobtainable: All systems reviewed & are unremarkable except as noted in HPI and below Patient History Medical History Atrial fibrillation DM type 2 (diabetes mellitus, type 2) Social History household members: none Smoking Status: Former smoker Smoking Status: Former smoker alcohol intake frequency: 0-2 drinks per day Substance Use Type: does not use Exam Narrative Exam Narrative: GEN: Patient appears in mild distress. HEAD: No evidence of patient has abrasion over the bridge of the nose with some mild ecchymosis no hematoma. Appears straight and midline,, no raccoon/Vieyra sign. NECK: Nontender, painless range of motion, trachea midline [Negative/positive] Nexus criteria, [there is not] line tenderness, distracting injury, altered mental status, neuro deficit, recent EtOH. EYES: PERRLA, EOMI ENT: External inspection normal other than above, trachea is midline, TM's are normal no hemotypanum, Nares are clear, no septal hematoma, no dental or oral injury, airway is normal and with normal occlusion, No bony tenderness RESP: Chest is nontender and has symmetric movement, no ecchymosis, breath sounds are normal no crackles, wheezes or rales CVS: Heart sounds are normal, no murmur noted, No JVD. Patient does have bilateral lower extremity swelling 2+. Patient states it is about his usual baseline. ABG/GI: Nontender, soft, mildly distended. Normal bowel sounds, no distention, no organomegaly, pelvic rock is negative, patient politely defers rectal exam. NEURO: Oriented AOx3, neuro is grossly intact, sensation and motor is normal all 4 extremities moving, cranial nerves II through XII are intact, GCS is 15 PSYCH: Normal mood and affect SKIN: Intact, warm and dry, no crepitus and without decubitus BACK: No CVA tenderness, no vertebral tenderness, no step-off's, no crepitus EXT: Atraumatic, hips are nontender, no pedal edema, normal color and temperature, normal range of motion of extremities with normal tendon exam, 2+ pulses in all four extremities Initial Vital Signs Initial Vital Signs: Vital Signs Pulse Rate 77 02/28/23 09:34 Pulse Oximetry 94 02/28/23 09:34 Course Orders Ordered: Discontinued Medications Acetaminophen (Acetaminophen 325 Mg Tablet) 975 mg PO NOW ONE Stop: 02/28/23 11:53 Last Admin: 02/28/23 11:58 Dose: Not Given Documented By: JACE Sodium Chloride (Normal Saline 0.9%) 1,000 mls @ 500 mls/hr IV BOLUS ONE Stop: 02/28/23 13:41 Last Infusion: 02/28/23 13:10 Dose: 0 mls/hr Documented By: Admin: 02/28/23 11:57 Dose: 500 mls/hr Documented By: JACE Magnesium Citrate (Magnesium Citrate 300 Ml Solution) 300 ml PO NOW ONE Stop: 02/28/23 12:49 Last Admin: 02/28/23 13:10 Dose: 300 ml Documented By: KYLE Mineral Oil (Mineral Oil 1 Each Enema) 1 each UT NOW ONE Stop: 02/28/23 11:42 Last Admin: 02/28/23 11:57 Dose: 1 each Documented By: JACE Vital Signs Vital signs: Vital Signs - 8 hr 02/28/23 09:40 02/28/23 09:34 02/28/23 10:00 Temperature 98.8 F Pulse Rate 82 77 Respiratory Rate 22 Blood Pressure 106/56 L 109/54 L Pulse Oximetry 97 94 Oxygen Delivery Method Room Air 02/28/23 10:00 Temperature Pulse Rate 70 Respiratory Rate Blood Pressure Pulse Oximetry 96 Oxygen Delivery Method MDM - Abdominal Pain Lab Data 02/28/23 09:45 02/28/23 09:45 Labs: Lab Results 02/28/23 02/28/23 02/28/23 Range/Units 09:45 09:45 09:45 WBC 2.3 L (4.5-11.0) X10^3/uL RBC 3.24 L (4.5-5.9) X10^6/uL Hgb 9.3 L (13.5-17.5) g/dL Hct 28.0 L (41-53) % MCV 86.5 (80-100) fL MCH 28.6 (26-34) PG MCHC 33.1 (30-36) % RDW 17.2 H (11.6-14.8) % Plt Count 249 (150-400) X10^3/uL Neut % (Auto) 54.8 (50-75) % Lymph % (Auto) 26.3 (25-40) % [place] % (Auto) 18.3 H (3-14) % Eos % (Auto) 0.0 L (2-4) % Baso % (Auto) 0.6 (0-2) % Neut # (Auto) 1300 L (2423-1865) /uL Lymph # (Auto) 600 L (7953-2105) /uL [place] # (Auto) 400 (0-900) /uL Eos # (Auto) 0 (0-450) /uL Baso # (Auto) 0 (0-100) /uL PT 14.0 H (10.1-12.7) SECONDS INR 1.2 (0.9-1.3) APTT 34 (26-36) SECONDS Sodium 135 L (137-145) mmol/L Potassium 3.5 (3.4-5.1) mmol/L Chloride 96 L (98-107) mmol/L Carbon Dioxide 34 H (22-32) mmol/L BUN 19 (9-20) mg/dL Creatinine 0.71 (0.66-1.25) mg/dL Estimated GFR > 60 (>60) mL/min BUN/Creatinine Ratio 26.8 H (6-22) Glucose 89 (80-110) mg/dL Calcium 8.7 (8.4-10.2) mg/dL Total Bilirubin 0.7 (0.2-1.3) mg/dL AST 49 (17-59) IU/L ALT 19 (<50) IU/L Alkaline Phosphatase 52 (38-126) U/L Total Creatine Kinase 182 H (55-170) U/L Troponin I 0.038 H (0.01-0.034) ng/mL NT-Pro-B Natriuret Pep 1080 H (<450) pg/mL Total Protein 7.4 (6.3-8.2) g/dL Albumin 3.5 (3.5-5.0) g/dL Globulin 3.9 (1.7-4.1) g/dL Albumin/Globulin Ratio 0.9 L (1.0-2.8) Lipase 85 (23-300) U/L Procalcitonin 0.08 (<0.5) ng/mL Urine Color Urine Appearance Urine pH (4.5-8.0) Ur Specific [place] (1.000-1.035) Urine Protein (Negative) Urine Glucose (UA) (Negative) g/dL Urine Ketones (NEGATIVE) Urine Occult Blood (Negative) Urine Nitrate (Negative) Urine Bilirubin (NEGATIVE) Urine Urobilinogen (0.2) E.U./dL Ur Leukocyte Esterase (NEGATIVE) Urine RBC (0-5/HPF) Urine WBC (0-5/HPF) Ur Squamous Epith Cells (0-5/HPF) Urine Bacteria (None) Ur Culture Indicated? Micro UA Comment 02/28/23 Range/Units 09:45 WBC (4.5-11.0) X10^3/uL RBC (4.5-5.9) X10^6/uL Hgb (13.5-17.5) g/dL Hct (41-53) % MCV (80-100) fL MCH (26-34) PG MCHC (30-36) % RDW (11.6-14.8) % Plt Count (150-400) X10^3/uL Neut % (Auto) (50-75) % Lymph % (Auto) (25-40) % [place] % (Auto) (3-14) % Eos % (Auto) (2-4) % Baso % (Auto) (0-2) % Neut # (Auto) (1076-0334) /uL Lymph # (Auto) (8629-3327) /uL [place] # (Auto) (0-900) /uL Eos # (Auto) (0-450) /uL Baso # (Auto) (0-100) /uL PT (10.1-12.7) SECONDS INR (0.9-1.3) APTT (26-36) SECONDS Sodium (137-145) mmol/L Potassium (3.4-5.1) mmol/L Chloride (98-107) mmol/L Carbon Dioxide (22-32) mmol/L BUN (9-20) mg/dL Creatinine (0.66-1.25) mg/dL Estimated GFR (>60) mL/min BUN/Creatinine Ratio (6-22) Glucose (80-110) mg/dL Calcium (8.4-10.2) mg/dL Total Bilirubin (0.2-1.3) mg/dL AST (17-59) IU/L ALT (<50) IU/L Alkaline Phosphatase (38-126) U/L Total Creatine Kinase (55-170) U/L Troponin I (0.01-0.034) ng/mL NT-Pro-B Natriuret Pep (<450) pg/mL Total Protein (6.3-8.2) g/dL Albumin (3.5-5.0) g/dL Globulin (1.7-4.1) g/dL Albumin/Globulin Ratio (1.0-2.8) Lipase (23-300) U/L Procalcitonin (<0.5) ng/mL Urine Color Yellow Urine Appearance Sl cloudy Urine pH 6.5 (4.5-8.0) Ur Specific [place] 1.010 (1.000-1.035) Urine Protein Negative (Negative) Urine Glucose (UA) Negative (Negative) g/dL Urine Ketones Negative (NEGATIVE) Urine Occult Blood Negative (Negative) Urine Nitrate Negative (Negative) Urine Bilirubin Negative (NEGATIVE) Urine Urobilinogen 1.0 (0.2) E.U./dL Ur Leukocyte Esterase Negative (NEGATIVE) Urine RBC None seen (0-5/HPF) Urine WBC None seen (0-5/HPF) Ur Squamous Epith Cells None seen (0-5/HPF) Urine Bacteria None seen (None) Ur Culture Indicated? Cult not indicated Micro UA Comment Microscopic normal Imaging Data CT scan - head: Radiologist's Impression: Close Head CT (Signed) Jameson Oakley - 02/28/23 Chest X-Ray (Signed) OakleyJameson - 02/28/[address] (Signed) OakleyJameson - 02/28/23 Abdomen/Pelvis CT (Signed) Magdaleno Burt - 02/28/23 Telemetry Strips 02/07/23 Abdomen/Pelvis CT (Signed) Eulogio Parrish - 02/07/23 Chest/Abdomen X-ray (Signed) Eulogio Parrish - 02/07/[address] (Signed) Sagar Tee - 01/23/23 Abdomen/Pelvis CT (Signed) Sagar Tee - 01/23/23 Launch?[place] [address] CT Scan Report Signed Patient: Juan Pablo Rebollar MR#: [id number] : 1940 Acct:[id number] Age/Sex: 82 / M Date of Service: 02/28/23 Loc: ED Accession Number: [id number] ?? Procedure: CT head/brain wo con Ordering Provider: Juanita Mario D.O. PROCEDURE:? CT HEAD/BRAIN WO CON ? INDICATIONS:? fall, hit head ? TECHNIQUE:? Noncontrast 4.5 mm thick angled axial sections acquired from the foramen magnum to the vertex, with coronal and sagittal reformats.? For radiation dose reduction, the following was used:? automated exposure control, adjustment of mA and/or kV according to patient size.? ? COMPARISON:? [facility], CT, CT HEAD/BRAIN WO CON, 01/23/2023, 19:58. ? FINDINGS:? Image quality:? Excellent.? ? CSF spaces:? Basal cisterns are patent.? No extra-axial fluid collections.? The ventricles are symmetric in size and shape.? ? Brain:? No intracranial bleeds or masses.? There is cerebral volume loss for age, with resultant ventricular and sulcal prominence.? There are periventricular and deep white matter chronic small vessel ischemic changes.? Encephalomalacia and gliosis within the left temporal lobe is stable.? There is intracranial internal carotid artery atherosclerosis.? ? Skull and face:? Calvarium and visualized facial bones appear intact, without suspicious lesions.? ? Sinuses:? Visualized sinuses and mastoids are clear.? ? IMPRESSION:? No acute intracranial abnormalities.? Redemonstration of chronic microvascular ischemic change and global volume loss, expected for age. ? ? Dictated by: Jameson Oakley M.D. on 02/28/2023 at 10:57 ? ? Approved by: Jameson Oakley M.D. on 02/28/2023 at 10:59?? CT - cervical spine: Radiologist's Impression: [place] [address] CT Scan Report Signed Patient: Juan Pablo Rebollar MR#: [id number] : 1940 Acct:[id number] Age/Sex: 82 / M Date of Service: 02/28/23 Loc: ED Accession Number: [id number] ?? Procedure: CT cervical spine wo con Ordering Provider: Juanita Mario D.O. PROCEDURE:? CT CERVICAL SPINE WO CON ? INDICATIONS:? fall, abd pain ? TECHNIQUE:? Noncontrast 3 mm thick sections acquired from the skull base to the T4 level.? S agittal and coronal reformats were then constructed.? For radiation dose reduction, the following was used:? automated exposure control, adjustment of mA and/or kV according to patient size.? ? COMPARISON:? None. ? FINDINGS:? Image quality:? Excellent.? ? Bones:? No cervical spine fractures or dislocations.? Visualized superior ribs are intact.? Degenerative changes of the cervical spine with disc height loss, facet and uncovertebral arthropathy and osteophytosis.? Compression deformity of the s uperior endplate of T3.? Decreased osseous mineralization. ? Soft tissues:? Prevertebral soft tissues are normal in thickness.? No paravertebral hematomas.? No apical pneumothoraces.? Small to moderate bilateral pleural effusions.? Paraseptal and centrilobular emphysematous changes. ? ? IMPRESSION:? ? 1. Limited exam secondary to patient positioning.? No acute fracture or traumatic listhesis of the cervical spine.? 2. Compression deformity of the superior endplate of T3 with approximately 25 percent height loss.? No retropulsion.? Recommend correlation with point tenderness. ? ? ? Dictated by: Jameson Oakley M.D. on 02/28/2023 at 10:59 ? ? Approved by: Jameson Oakley M.D. on 02/28/2023 at 11:08?? CT scan - abdomen/pelvis: Radiologist's Impression: [address] [address] [address] Scan Report Signed Patient: Juan Pablo Rebollar MR#: [id number] : 1940 Acct:[id number] Age/Sex: 82 / M Date of Service: 02/28/23 Loc: ED Accession Number: [id number] ?? Procedure: CT cervical spine wo con Ordering Provider: Juanita Mario D.O. PROCEDURE:? CT CERVICAL SPINE WO CON ? INDICATIONS:? fall, abd pain ? TECHNIQUE:? Noncontrast 3 mm thick sections acquired from the skull base to the T4 level.? Sagittal and coronal reformats were then constructed.? For radiation dose reduction, the following was used:? automated exposure control, adjustment of mA and/or kV according to patient size.? ? COMPARISON:? None. ? FINDINGS:? Image quality:? Excellent.? ? Bones:? No cervical spine fractures or dislocations.? Visualized superior ribs are intact.? Degenerative changes of the cervical spine with disc height loss, facet and uncovertebral arthropathy and osteophytosis.? Compression deformity of the sup erior endplate of T3.? Decreased osseous mineralization. ? Soft tissues:? Prevertebral soft tissues are normal in thickness.? No paravertebral hematomas.? No apical pneumothoraces.? Small to moderate bilateral pleural effusions.? Paraseptal and centrilobular emphysematous changes. ? ? IMPRESSION:? ? 1. Limited exam secondary to patient positioning.? No acute fracture or traumatic listhesis of the cervical spine.? 2. Compression deformity of the superior endplate of T3 with approximately 25 percent height loss.? No retropulsion.? Recommend correlation with point tenderness. ? ? ? Dictated by: Jameson Oakley M.D. on 02/28/2023 at 10:59 ? ? Approved by: Jameson Oakley M.D. on 02/28/2023 at 11:08?? Chest x-ray: Radiologist's Impression: Close Head CT (Signed) OakleyJameson - 02/28/23 Chest X-Ray (Signed) Jameson Oakley - 02/28/[address] (Signed) Jameson Oakley - 02/28/23 Abdomen/Pelvis CT (Signed) Magdaleno Burt - 02/28/23 Telemetry Strips 02/07/23 Abdomen/Pelvis CT (Signed) ShivaniEulogio - 02/07/23 Chest/Abdomen X-ray (Signed) Eulogio Parrish - 02/07/[address] (Signed) Sagar Tee - 01/23/23 Abdomen/Pelvis CT (Signed) Sagar Tee - 01/23/23 [place] [address] XRay Report Signed Patient: Juan Pablo Rebollar MR#: [id number] : 1940 Acct:[id number] Age/Sex: 82 / M Date of Service: 02/28/23 Loc: ED Accession Number: [id number] ?? Procedure: XR chest 1V Ordering Provider: Juanita Mario D.O. PROCEDURE:? XR CHEST 1V ? INDICATIONS:? fall, abd pain ? TECHNIQUE:? One view of the chest was acquired.? ? COMPARISON:? [facility], CT, CT ABDOMEN PELVIS W CON, 02/28/2023, 10:32. ? FINDINGS:? ? Surgical changes and devices:? None.? ? Lungs and pleura:? Small to moderate bilateral pleural effusions.? Bibasilar hazy opacities, atelectasis versus consolidation. ? Mediastinum:? Mediastinal contours appear normal.? Heart size is normal.? ? Bones and chest wall:? No suspicious bony lesions.? Overlying soft tissues appear unremarkable.? ? IMPRESSION:? Small to moderate bilateral pleural effusions with adjacent atelectasis versus consolidation. ? ? Dictated by: Jameson Oakley M.D. on 02/28/2023 at 10:54 ? ? Approved by: Jameson Oakley M.D. on 02/28/2023 at 10:55?? ECG Data Attestation: I personally reviewed and interpreted this ECG as follows: Prior ECG tracings: available for review Interpretation: AFib rate of 75 UT 142 QRS of 457. Right bundle-branch, no acute ST changes from prior. On 01/23/2023. [facility] Narrative Medical decision making narrative: 82-year-old male with multiple medical issues presents with constipation, did have a recent fall had abrasion over his nose is on Xarelto so had head CT C- spine which were negative. Did not have significant changes in terms of bruising to his face so facial bones were not obtained. Chest x-ray was included as well does show some small to moderate effusions. Patient CT abdomen pelvis shows stool, there was some thickening of the sigmoid colon up to 2.5 cm but patient did have a colonoscopy in the last month because of similar thickening seen on CT was found to have a polyp, and ileocolic anastomosis and terminal ileum were evaluated. No other abnormalities are noted on the report. Patient labs show anemia slightly improved at 9.3 from 8.6 chronic leukopenia 2.3 was 3.2 on last platelets are 249- coags normal renal function electrolytes LFTs are negative. Troponin BNP are included is indeterminate and 10 80 patient is asymptomatic. Protocol was negative as well. Urine is negative as well. Head CT shows no acute change there is a T3 endplate compression deformity but nontender on examination. And patient received enema here in the department large ampint of stool soft coming out. We will try adding a stimulant to patient's medications. Discharge Plan Departure Patient Disposition: Home Clinical Impression: Constipation Instructions: DI for Constipation Activity Restrictions/Additional Instructions: Your imaging does not show any signs of obstruction today you do have stool throughout. Can continue with your stool softeners I would recommend adding some magnesium citrate from the top down. You can try enemas if that is helpful or glycerin suppository [id number] daily as needed. Please return if you have new or worsening symptoms if you are vomiting, having increasing abdominal pain, if you are not having any stool output in the next 48 hours, if you are not passing gas, if you are having black or bloody stools or other new or concerning changes. Prescriptions: No Action furosemide 40 mg tablet 40 mg PO QAM atorvastatin 20 mg tablet 20 mg PO DAILY prazosin 1 mg capsule 1 mg PO ONCE PM potassium chloride 20 mEq tablet,ER particles/crystals 20 meq PO DAILY omeprazole 20 mg capsule,delayed release(DR/EC) 20 mg PO DAILY lisinopril 5 mg tablet 5 mg PO BID ezetimibe 10 mg tablet 10 mg PO DAILY albuterol sulfate 2.5 mg/0.5 mL Solution For Nebulization 2.5 mg BID PRN (Reason: Shortness Of Breath Or Wheezing) budesonide-formoterol 80-4.5 mcg/actuation HFA aerosol inhaler 2 puff INHALATION BID PRN (Reason: Shortness Of Breath Or Wheezing) fenofibric acid (choline) 135 mg capsule,delayed release(DR/EC) 135 mg PO DAILY metoprolol succinate 25 mg tablet 25 mg PO DAILY polyethylene glycol 3350 [Miralax] 17 gram/dose powder 17 g PO DAILY PRN (Reason: Constipation) Xarelto 15 mg tablet 15 mg PO DAILY Qty: 30 0RF Rx Instructions: must administer with evening meal Referrals: Linda Russo MD [Primary Care Provider] - Stand Alone Forms: Patient Portal/API
[2023-02-28] MEDS: MINERAL OIL 1 EACH ENEMA PR (11:57)
[2023-02-28] MEDS: SODIUM CHLORIDE 0.9% 1,000 ML 500 ML IV (11:57)
[2023-02-28] MEDS: MAGNESIUM CITRATE 300 ML SOLUTION PO (13:10)
== END 2023-02-28 13:24 | disposition home or self-care (01) ==
PROVIDERS: Emergency Provider Emergency Medicine; Family Provider Internal Medicine; PCP Internal Medicine
DX: K59.00 Constipation, unspecified (principal); R10.9 Unspecified abdominal pain; S09.90XA Unspecified injury of head, initial encounter; S00.31XA Abrasion of nose, initial encounter; W19.XXXA Unspecified fall, initial encounter; Z79.899 Other long term (current) drug therapy; R79.89 Other specified abnormal findings of blood chemistry
CPT/HCPCS: 36415; 70450; 71045; 72125; 74177; 80053; 81001; 82550; 83690; 83880; 84145; 84484; 85025; 85610; 85730; 93005; 96360; 99284; Q9967